=== PATIENT | female | born 1970 ===

== ENCOUNTER 2020-09-12 06:40 | Day surgery (SDC) | payer MEDICAID, SELFPAY ==
[2020-09-08 15:29] VITALS: BMI 36.8
--- NOTE | 2020-09-11 12:04 | P.CONAN_ITS ---
Documented by User: Lila Roa 09/11/20 12:05 HPI - Anesthesia Eval Consult details Narrative: 50yo F for Colonoscopy PMFSH Past Medical History Medical History Asthma History of renal stone Iron deficiency anemia Left shoulder pain Thyroid cancer Surgical History Surgical History History of lithotripsy Hx of thyroidectomy Social History Social History Advance Directives: No Advance Directives Information Provided: No Advance Directives on File: No Meds Allergies Allergy/AdvReac Type Severity Reaction Status Date / Time No Known Allergies Allergy Verified 09/12/20 07:06 [No Known Allergies*] Home Medications Medication Instructions Recorded Confirmed Type albuterol sulfate [ProAir HFA] 2 puff INHALATION Q4-6H PRN 09/08/20 09/08/20 History budesonide [Pulmicort Flexhaler] 1 inh INHALATION BID 09/08/20 09/08/20 History cholecalciferol (vitamin D3) 25 mcg PO DAILY 09/08/20 09/08/20 History [Vitamin D3] ibuprofen 09/08/20 History levothyroxine 09/08/20 09/08/20 History multivitamin 1 cap PO DAILY 09/08/20 09/08/20 History sennosides-docusate sodium [Senna 1 tab-cap PO BEDTIME 09/08/20 09/08/20 History Plus] Exam Exam Date and Time: September 11, 2020 1204 Height,Weight and Vital Signs: Height 5 ft 6 in Weight 103.419 kg Pertinent Lab Results Pertinent Lab Results: Laboratory Tests 06/02/20 06/02/20 07:05 07:05 WBC 7.2 Hgb 11.7 L Hct 36.6 L Plt Count 359 Sodium 139 Potassium 4.4 Chloride 106 BUN 13 Creatinine 0.75 Assessment and Plan Assessment Anesthesia Assessment: Chart Reviewed Documented by User: Erica Walsh 09/12/20 07:45 [facility] Past Medical History Medical History Asthma History of renal stone Iron deficiency anemia Left shoulder pain Thyroid cancer Surgical History Surgical History History of lithotripsy Hx of thyroidectomy Social History Social History Advance Directives: No Advance Directives Information Provided: No Advance Directives on File: No Meds Allergies Allergy/AdvReac Type Severity Reaction Status Date / Time No Known Allergies Allergy Verified 09/12/20 07:06 [No Known Allergies*] Home Medications Medication Instructions Recorded Confirmed Type albuterol sulfate [ProAir HFA] 2 puff INHALATION Q4-6H PRN 09/08/20 09/08/20 History budesonide [Pulmicort Flexhaler] 1 inh INHALATION BID 09/08/20 09/08/20 History cholecalciferol (vitamin D3) 25 mcg PO DAILY 09/08/20 09/08/20 History [Vitamin D3] ibuprofen 09/08/20 History levothyroxine 09/08/20 09/08/20 History multivitamin 1 cap PO DAILY 09/08/20 09/08/20 History sennosides-docusate sodium [Senna 1 tab-cap PO BEDTIME 09/08/20 09/08/20 History Plus] Exam Airway Mallampati Class: II TM Dist: >3cm Neck ROM: Full
[2020-09-12 07:13] VITALS: BP 129/72; PULSE 79; RESP 16; TEMP 36.1; O2SAT 98
[2020-09-12] MEDS: Lactated Ringers 1,000 ML 100 ML IVCONT (07:38)
--- NOTE | 2020-09-12 07:49 | MHC.SHP ---
Pre-Procedural Eval Section B Chief Complaint: Anemia Details of Present Illness: ELBERT, constipation Relevant Family History (Specify if Yes): Yes Relevant Social History: None Present Medications: see Short Stay Collaborative assessment Medical History: No relevant PMH History of Previous Operations: No relevant previous surgery Allergies: Allergies Allergy/AdvReac Type Severity Reaction Status Date / Time No Known Allergies Allergy Verified 09/12/20 07:06 [No Known Allergies*] Review of Systems Sugical H&P ROS: Negative: Constitution, Cardiovascular, Respiratory, Neurological, Psychiatric, Hem-Onc, Allergic/Immunologic, Gastrointestinal, Genitourinary, Musculoskeletal, Integumentary, Endocrine and Eyes/Ears/Nose/Throat Exam Surgical H&P Exam: Normal: HEENT, Normal: Heart, Normal: Lungs, Normal: Extremities, Normal: Abdomen, Normal: Skin and Normal: Neurological Plan Diagnosis/Plan: Unchanged Patient has been examined and remains a candidate for the planned procedure
--- NOTE | 2020-09-12 08:16 | PM.OP ---
Brief Operative Note Date of Service: 09/12/20 Pre-op diagnosis: screening Post-op diagnosis: same (colon polyp) Procedure: colonoscopy Surgeon: López Ortiz Anesthesia: MAC Estimated blood loss (mL): 0 Pathology: other (polyp 55 cm) Condition: stable Disposition: PACU
[2020-09-12 08:22] VITALS: BP 89/52; PULSE 75; RESP 14; TEMP 36.4; O2SAT 97
--- NOTE | 2020-09-12 08:35 | OP_ITS ---
SURGEON: López Ortiz MD PREOPERATIVE DIAGNOSIS: POSTOPERATIVE DIAGNOSIS: PROCEDURE PERFORMED: ESTIMATED BLOOD LOSS: COMPLICATIONS: ANESTHESIA: ASSISTANTS: SPECIMENS: PROCEDURE: Colonoscopy of the terminal ileum with snare polypectomy. INDICATION: Iron deficiency anemia and constipation. MEDICATIONS: Monitored anesthesia care. DESCRIPTION OF PROCEDURE: History and physical performed. The risks and benefits of the procedure were explained to the patient. Informed consent was obtained. The patient was placed in the left lateral decubitus position. A digital rectal exam was performed and was found to be normal. The Olympus pediatric video colonoscope was introduced into the rectum and advanced to the cecum without difficulty. The cecum was identified by transillumination, palpation, and identification of ileocecal valve. Examination was performed. The scope was removed. She tolerated the procedure well and was taken to recovery area in stable condition. FINDINGS: The terminal ileum was normal. The visualized colonic mucosa was normal. At 55 cm from the anal verge was a 7 mm polyp which was removed with a snare and recovered via suction. No other polyps were identified. Retroflexed examination showed small internal hemorrhoids. The quality of prep was good. IMPRESSION: Colon polyp. RECOMMENDATION: Follow up the biopsy results. MD ASHLEY Lozano/COLIN / [id number]
[2020-09-12 08:37] VITALS: BP 110/60; PULSE 61; RESP 16; TEMP 36.4; O2SAT 98
--- NOTE | 2020-09-12 09:18 | HO.POSTANES ---
Post Anesthesia Evaluation Post Anesthesia Evaluation Vital Signs: Vital Signs Temp Pulse Resp BP Pulse Ox 09/12/20 08:37 97.6 F 61 16 110/60 98 09/12/20 08:22 97.6 F 75 14 89/52 L 97 09/12/20 07:13 97.0 F 79 16 129/72 98 Anesthesia: Monitored Mental Status: Awake Pain Control: Satisfactory Nausea/Vomiting: None Hydration: Adequate Anesthesia-Related Issues: No Anes. Related Issues
== END 2020-09-12 09:10 | disposition home or self-care (01) ==
PROVIDERS: PCP Internal Medicine; Visit Provider Internal Medicine Gastroenterology
PROC: 0DJD8ZZ Inspection of Lower Intestinal Tract, Via Natural or Artificial Opening Endoscopic (ICD-10-PCS; CPT 45378; principal; 2020-09-12 08:00)
DX: D50.9 Iron deficiency anemia, unspecified (principal); K59.09 Other constipation; D12.6 Benign neoplasm of colon, unspecified; K64.8 Other hemorrhoids
CPT/HCPCS: 45385; 88305

== ENCOUNTER 2020-12-16 07:34 | Outpatient (REF) | payer MEDICAID, SELFPAY ==
[2020-12-16 08:23] LABS: MANUAL DIFF FLAG NO
[2020-12-16 08:30] LABS: Basophils Absolute Auto 0.1 X10*3/uL (0.0-0.2); Basophils Percent Auto 0.7 % (0-2); Eosinophils Absolute Auto 0.2 X10*3/uL (0.0-0.4); Eosinophils Percent Auto 2.7 % (0-4); Hematocrit 37.6 % (37-47); Hemoglobin 11.8 g/dl (12.0-16.0); Imm Gran Abs Auto 0.02 X10*3/uL (0.00-0.03); Imm Gran Pct Auto 0.2 % (0.0-0.4); Lymphocytes Absolute Auto 2.6 X10*3/uL (1.2-4.9); Lymphocytes Percent Auto 30.6 % (20-40); Mean Corpuscular HGB Conc 31.4 g/dl (31.0-35.0); Mean Corpuscular Hemoglobin 27.3 pg (27.0-33.0); Mean Platelet Volume 10.3 fL (9.4-12.3); Monocytes Absolute Auto 0.7 X10*3/uL (0.1-1.2); Monocytes Percent Auto 7.8 % (2-11); Platelet Count 369 X10*3/uL (160-400); Red Blood Count 4.32 X10*6/uL (4.20-5.50); Red Cell Distribution Width 14.6 % (11.0-16.0); White Blood Count 8.5 X10*3/uL (4.8-10.8)
[2020-12-16 08:53] LABS: Alanine Aminotransferase 28 U/L (0-31); Albumin Level 4.3 g/dL (3.5-5.0); Alkaline Phosphatase 111 U/L (39-117); Anion Gap 11 (12-20); Aspartate Amino Transferase 23 U/L (5-31); Bilirubin Total 0.3 mg/dL (0.0-1.0); Blood Urea Nitrogen 12 mg/dL (9-16); Calcium 8.7 mg/dL (8.4-10.2); Carbon Dioxide 29 mmol/L (22-29); Chloride 104 mmol/L (96-108); Estimated Glomerular Filt Rate > 60; Glucose Fasting 93 mg/dL (60-99); Potassium 3.9 mmol/L (3.3-5.1); Sodium 140 mmol/L (135-145); Total Protein 7.3 g/dL (6.5-8.0)
[2020-12-16 09:18] LABS: Thyroid Stimulating Hormone 0.39 uIU/mL (0.32-4.0)
== END 2020-12-16 07:35 | disposition home or self-care (01) ==
LOC: HO.LAB 07:34
PROVIDERS: PCP Internal Medicine; Visit Provider Internal Medicine
DX: D50.8 Other iron deficiency anemias (principal); E89.0 Postprocedural hypothyroidism; Z85.850 Personal history of malignant neoplasm of thyroid; Z86.010 Personal history of colon polyps
CPT/HCPCS: 36415; 80053; 84443; 85025

== ENCOUNTER 2021-01-03 09:13 | Outpatient (REF) | payer MEDICAID, SELFPAY ==
--- NOTE | ~2021-01-03 | MM_ITS ---
EXAMINATION: MM SCREENING DIGITAL BREAST TOMOSYNTHESIS, BILATERAL CLINICAL INFORMATION: Screening. Asymptomatic. The lifetime risk of breast cancer based on the Tyrer-Cuzick Model is 9.0%. COMPARISON: Mammography: September 27, 2019 and studies dating back to April 30, 2013 TECHNIQUE: Digital breast tomosynthesis is performed in both the craniocaudal and mediolateral oblique views along with computer-aided detection (CAD). Synthesized 2D images are generated from the tomosynthesis. FINDINGS: There are scattered areas of fibroglandular density (ACR BI-RADS breast composition Category b). There are no significant masses, abnormal calcifications, or other abnormalities. MM/MM tomosynthesis screening BI IMPRESSION: There are no significant changes from prior study. ASSESSMENT: BI-RADS 1: Negative RECOMMENDATION: Routine annual mammography screening. This patient's information was entered into a reminder system with a target due date for their next mammogram.
== END 2021-01-03 09:14 | disposition home or self-care (01) ==
LOC: HO.MAMMO 09:13
PROVIDERS: PCP Internal Medicine; Visit Provider Internal Medicine
DX: Z12.31 Encounter for screening mammogram for malignant neoplasm of breast (principal)
CPT/HCPCS: 77063; 77067

== ENCOUNTER → 2021-06-25 08:35 | Outpatient (BNVA) | payer MEDICAID, SELFPAY | PROVIDERS: PCP Internal Medicine; Visit Provider Surgery Vascular Surgery | DX: I83.11 Varicose veins of right lower extremity with inflammation (principal) | CPT/HCPCS: 99202 ==

== ENCOUNTER 2021-07-06 07:41 | Outpatient (REF) | payer MEDICAID, SELFPAY ==
--- NOTE | ~2021-07-06 | US_ITS ---
EXAMINATION: BILATERAL LOWER EXTREMITY VENOUS ULTRASOUND (Reflux Exam) CLINICAL INDICATION: Lower extremity varicose veins with insufficiency. COMPARISON: None. TECHNIQUE: Color flow triplex imaging and compression Doppler was performed to evaluate both the deep and the superficial systems bilaterally. To evaluate the superficial system, the examination was performed in the upright position. Color-flow Doppler ultrasound and compression ultrasound were utilized. In addition, maneuvers were utilized to demonstrate reflux. FINDINGS: 1. DEEP VENOUS ULTRASOUND OF THE RIGHT LOWER EXTREMITY: Common Femoral Vein: Compressible, normal respiratory variation and augmented flow. Femoral vein: Compressible, normal color flow and augmentation. Popliteal Vein: Compressible, normal augmentation. Deep Reflux: There is no evidence of reflux in the deep system in either the common femoral vein or the popliteal vein. There is no evidence of a Fay's cyst. 2. SUPERFICIAL ULTRASOUND WITH DOPPLER OF RIGHT LOWER EXTREMITY GREAT SAPHENOUS VEIN: The right great saphenous vein ranges in size from 0.2 cm at the ankle to 0.5 cm at the junction. There is no evidence of reflux. DUPLICATED GREAT SAPHENOUS VEIN: Lateral, 0.3 cm at the junction, no reflux. SMALL SAPHENOUS VEIN: Saphenopopliteal junction: 0.5 cm; No evidence of reflux. Mid calf: 0.2 cm; No evidence of reflux. Distal calf: 0.1 cm; No evidence of reflux. VEIN OF GIACOMINI: None Imaged. PERFORATORS: None Imaged. VARICOSITIES: Distal thigh, 0.3 cm, no reflux. At knee, 0.3 cm, no reflux. Proximal vega, 0.2 cm, 2.8 seconds of reflux. 3. DEEP VENOUS ULTRASOUND OF THE LEFT LOWER EXTREMITY: Common Femoral Vein: Compressible, normal respiratory variation and augmented flow. Femoral vein: Compressible, normal color flow and augmentation. Popliteal Vein: Compressible, normal augmentation. Deep Reflux: There is no evidence of reflux in the deep system in either the common femoral vein or the popliteal vein. There is no evidence of a Fay's cyst. 4. SUPERFICIAL ULTRASOUND WITH DOPPLER OF LEFT LOWER EXTREMITY GREAT SAPHENOUS VEIN: The left great saphenous vein ranges in size from 0.2 cm at the ankle to 0.4 cm at the saphenofemoral junction. There is segmental reflux at the knee measuring 3.4 seconds. DUPLICATED GREAT SAPHENOUS VEIN: Lateral, 0.2 cm, no reflux. SMALL SAPHENOUS VEIN: Saphenopopliteal junction: 0.2 cm; No evidence of reflux. Mid calf: 0.2 cm; No evidence of reflux. Distal calf: 0.2 cm; No evidence of reflux. VEIN OF GIACOMINI: None Imaged. PERFORATORS: Midcalf, 0.2 cm, no reflux. VARICOSITIES: Midcalf arising from the small saphenous vein, 0.2 cm, greater than 0.7 seconds of reflux. Mid thigh, 0.1 cm, greater than 0.9 seconds of reflux. US/US venous duplex LE BI IMPRESSION: 1. Segmental reflux within the left great saphenous vein at the knee. 2. No evidence of right great saphenous venous insufficiency. 3. No evidence of small saphenous venous insufficiency. 4. Bilateral refluxing varicosities. 5. No evidence of DVT or deep venous insufficiency.
== END 2021-07-06 07:42 | disposition home or self-care (01) ==
LOC: HO.US 07:41
PROVIDERS: PCP Internal Medicine; Visit Provider Surgery Vascular Surgery
DX: I83.893 Varicose veins of bilateral lower extremities with other complications (principal); I83.11 Varicose veins of right lower extremity with inflammation
CPT/HCPCS: 93970

== ENCOUNTER → 2021-08-13 08:55 | Outpatient (BNVA) | payer MEDICAID, SELFPAY | PROVIDERS: PCP Internal Medicine; Visit Provider Surgery Vascular Surgery | DX: I83.11 Varicose veins of right lower extremity with inflammation (principal) | CPT/HCPCS: 99212 ==

== ENCOUNTER → 2021-10-23 07:26 | Outpatient (BNVA) | payer MEDICAID, SELFPAY | PROVIDERS: PCP Internal Medicine; Visit Provider Surgery Vascular Surgery | DX: I83.11 Varicose veins of right lower extremity with inflammation (principal) | CPT/HCPCS: 37765 ==

== ENCOUNTER → 2021-11-05 08:48 | Outpatient (BNVA) | payer MEDICAID, SELFPAY | PROVIDERS: PCP Internal Medicine; Visit Provider Surgery Vascular Surgery | DX: I83.11 Varicose veins of right lower extremity with inflammation (principal); Z98.890 Other specified postprocedural states | CPT/HCPCS: 99212 ==

== ENCOUNTER 2021-11-17 07:33 | Outpatient (REF) | payer MEDICAID, SELFPAY ==
[2021-11-17 07:53] LABS: MANUAL DIFF FLAG NO
[2021-11-17 08:09] LABS: Basophils Percent Auto 0.4 % (0-2); Eosinophils Absolute Auto 0.2 X10*3/uL (0.0-0.4); Eosinophils Percent Auto 2.3 % (0-4); Hemoglobin 11.4 g/dl (12.0-16.0); Imm Gran Abs Auto 0.02 X10*3/uL (0.00-0.03); Imm Gran Pct Auto 0.2 % (0.0-0.4); Lymphocytes Absolute Auto 2.6 X10*3/uL (1.2-4.9); Lymphocytes Percent Auto 27.8 % (20-40); Mean Corpuscular HGB Conc 31.7 g/dl (31.0-35.0); Mean Corpuscular Hemoglobin 26.9 pg (27.0-33.0); Mean Corpuscular Volume 84.9 fL (80.0-98.0); Mean Platelet Volume 10.4 fL (9.4-12.3); Monocytes Absolute Auto 0.6 X10*3/uL (0.1-1.2); Monocytes Percent Auto 6.1 % (2-11); Neutrophils Percent Auto 63.2 % (45-73); Platelet Count 350 X10*3/uL (160-400); Red Blood Count 4.24 X10*6/uL (4.20-5.50); Red Cell Distribution Width 15.5 % (11.0-16.0); White Blood Count 9.5 X10*3/uL (4.8-10.8)
[2021-11-17 08:43] LABS: Alanine Aminotransferase 18 U/L (0-31); Albumin Level 4.2 g/dL (3.5-5.0); Alkaline Phosphatase 86 U/L (39-117); Anion Gap 13 (12-20); Aspartate Amino Transferase 18 U/L (5-31); Bilirubin Total 0.5 mg/dL (0.0-1.0); Blood Urea Nitrogen 9 mg/dL (9-16); Calcium 9.1 mg/dL (8.4-10.2); Carbon Dioxide 25 mmol/L (22-29); Chloride 105 mmol/L (96-108); Cholesterol 189 mg/dL; Estimated Glomerular Filt Rate > 60; Glucose Random 108 mg/dL (60-115); HDL Cholesterol 53 mg/dL; LDL Cholesterol Calculated 119 mg/dl; Potassium 3.9 mmol/L (3.3-5.1); Sodium 139 mmol/L (135-145); Total Protein 7.2 g/dL (6.5-8.0); Triglycerides 86 mg/dL
== END 2021-11-17 07:34 | disposition home or self-care (01) ==
LOC: HO.LAB 07:33
PROVIDERS: PCP Internal Medicine; Visit Provider Internal Medicine
DX: Z00.00 Encounter for general adult medical examination without abnormal findings (principal); E89.0 Postprocedural hypothyroidism; I83.90 Asymptomatic varicose veins of unspecified lower extremity; J45.902 Unspecified asthma with status asthmaticus; K59.09 Other constipation; Z85.850 Personal history of malignant neoplasm of thyroid; Z86.010 Personal history of colon polyps
CPT/HCPCS: 36415; 80053; 80061; 84443; 85025

== ENCOUNTER 2022-01-01 07:48 | Outpatient (REF) | payer MEDICAID, SELFPAY ==
--- NOTE | ~2022-01-01 | XR_ITS ---
EXAMINATION: XR SHOULDER, LEFT CLINICAL INFORMATION: Pain left shoulder COMPARISON: None TECHNIQUE: Three views of the left shoulder. FINDINGS: The bones and soft tissues are normal. No fracture. Glenohumeral and acromioclavicular alignment is anatomic with normal joint space. No abnormal soft tissue calcifications. XR/XR shoulder LT min 2V IMPRESSION: Unremarkable left shoulder.
== END 2022-01-01 07:49 | disposition home or self-care (01) ==
LOC: HO.HOSX 07:48
PROVIDERS: Visit Provider Physician Assistant
DX: M75.42 Impingement syndrome of left shoulder (principal); G56.02 Carpal tunnel syndrome, left upper limb
CPT/HCPCS: 73030; 99202

== ENCOUNTER 2022-01-11 07:21 | Outpatient (REF) | payer MEDICAID, SELFPAY ==
--- NOTE | ~2022-01-11 | MM_ITS ---
EXAMINATION: MM SCREENING DIGITAL BREAST TOMOSYNTHESIS, BILATERAL CLINICAL INFORMATION: Screening. Asymptomatic. The lifetime risk of breast cancer based on the Tyrer-Cuzick Model is 7%. COMPARISON: Mammography: 01/03/2021, 11/28/2018, 08/19/2018 TECHNIQUE: Digital breast tomosynthesis is performed in both the craniocaudal and mediolateral oblique views along with computer-aided detection (CAD). Synthesized 2D images are generated from the tomosynthesis. Additional right CC view is provided. FINDINGS: There are scattered areas of fibroglandular density (ACR BI-RADS breast composition Category b). There are no significant masses, abnormal calcifications, or other abnormalities. Parenchymal pattern is similar to prior studies. There is no developing density or architectural abnormality. The axilla and skin contours are unremarkable. No significant changes. MM/MM tomosynthesis screening BI IMPRESSION: No mammographic evidence of malignancy. ASSESSMENT: BI-RADS 1: Negative RECOMMENDATION: Routine annual mammography screening. This patient's information was entered into a reminder system with a target due date for their next mammogram.
== END 2022-01-11 07:22 | disposition home or self-care (01) ==
LOC: HO.MAMMO 07:21
PROVIDERS: PCP Internal Medicine; Visit Provider Internal Medicine
DX: Z12.31 Encounter for screening mammogram for malignant neoplasm of breast (principal)
CPT/HCPCS: 77063; 77067

== ENCOUNTER 2022-01-26 07:31 | Outpatient (REF) | payer MEDICAID, SELFPAY ==
--- NOTE | ~2022-01-26 | MR_ITS ---
EXAMINATION: MRI LEFT SHOULDER WITHOUT CONTRAST CLINICAL INFORMATION: Left shoulder pain COMPARISON: Radiographs 01/01/2022 TECHNIQUE: MRI of the shoulder without contrast is performed on a 1.5 Niki high-field scanner. FINDINGS: ROTATOR CUFF: Intact. Mild supraspinatus tendinosis. No muscle atrophy or fatty infiltration. BICEPS: Normal. CORACOACROMIAL ARCH: The undersurface of the acromion is curved with no subacromial spur. Mild acromioclavicular osteoarthritis. LABRUM/CAPSULE: Normal. GLENOHUMERAL JOINT/MARROW: No significant joint effusion or focal articular cartilage defect. ADDITIONAL FINDINGS: None. MR/MR shoulder LT wo con IMPRESSION: No rotator cuff tear. Mild supraspinatus tendinosis. Mild acromioclavicular osteoarthritis.
== END 2022-01-26 07:32 | disposition home or self-care (01) ==
LOC: HO.MRI 07:31
PROVIDERS: Visit Provider Physician Assistant
DX: S46.002A Unspecified injury of muscle(s) and tendon(s) of the rotator cuff of left shoulder, initial encounter (principal)
CPT/HCPCS: 73221

== ENCOUNTER → 2022-02-15 09:16 | Outpatient (BNVA) | payer MEDICAID, SELFPAY | PROVIDERS: PCP Internal Medicine; Visit Provider Physician Assistant | DX: M75.42 Impingement syndrome of left shoulder (principal); M19.012 Primary osteoarthritis, left shoulder | CPT/HCPCS: 99212 ==

== ENCOUNTER → 2022-02-25 08:05 | Outpatient (BNVA) | payer MEDICAID, SELFPAY | PROVIDERS: PCP Internal Medicine; Visit Provider Orthopaedic Surgery | DX: M75.42 Impingement syndrome of left shoulder (principal); M19.012 Primary osteoarthritis, left shoulder | CPT/HCPCS: 99212 ==

== ENCOUNTER 2022-03-10 10:01 | Outpatient (REF) | payer MEDICAID, SELFPAY ==
[2022-03-10 11:58] LABS: Alanine Aminotransferase 19 U/L (0-31); Albumin Level 4.2 g/dL (3.5-5.0); Alkaline Phosphatase 90 U/L (39-117); Anion Gap 11 (12-20); Aspartate Amino Transferase 19 U/L (5-31); Bilirubin Total 0.6 mg/dL (0.0-1.0); Blood Urea Nitrogen 11 mg/dL (9-16); Calcium 9.2 mg/dL (8.4-10.2); Carbon Dioxide 25 mmol/L (22-29); Chloride 105 mmol/L (96-108); Estimated Glomerular Filt Rate > 60; Glucose Random 86 mg/dL (60-115); Potassium 4.4 mmol/L (3.3-5.1); Sodium 137 mmol/L (135-145); Total Protein 7.2 g/dL (6.5-8.0)
[2022-03-10 12:22] LABS: Thyroid Stimulating Hormone 0.41 uIU/mL (0.32-4.0)
== END 2022-03-10 10:02 | disposition home or self-care (01) ==
LOC: HO.LAB 10:01
PROVIDERS: PCP Internal Medicine; Visit Provider Internal Medicine
DX: E89.0 Postprocedural hypothyroidism (principal); J45.909 Unspecified asthma, uncomplicated; M67.814 Other specified disorders of tendon, left shoulder; N95.1 Menopausal and female climacteric states; R10.13 Epigastric pain; Z85.850 Personal history of malignant neoplasm of thyroid
CPT/HCPCS: 36415; 80053; 84443

== ENCOUNTER 2022-04-07 09:47 | Outpatient (REF) | payer MEDICAID, SELFPAY ==
--- NOTE | 2022-04-07 09:49 | EMG_ITS ---
HISTORY OF PRESENT ILLNESS: This is a 51-year-old woman with a history of left hand pain and numbness. PHYSICAL EXAMINATION: On examination, she is alert and oriented with normal intellectual functions. Cranial nerves II through XII are normal. Muscle tone and strength are normal in all 4 extremities. No Tinel or Phalen sign. IMPRESSION: Carpal tunnel syndrome. Nerve conduction EMG study: Mild to moderate carpal tunnel syndrome on the left. Normal EMG of the left C5-T1 innervated muscles. MD DANI Limon/COLIN / [id number]
== END 2022-04-07 09:48 | disposition home or self-care (01) ==
LOC: HO.NEURO 09:47
PROVIDERS: Visit Provider Physician Assistant
DX: R20.0 Anesthesia of skin (principal); R20.2 Paresthesia of skin
CPT/HCPCS: 95885; 95910

== ENCOUNTER → 2022-04-15 09:30 | Outpatient (BNVA) | payer MEDICAID, SELFPAY | PROVIDERS: PCP Internal Medicine; Visit Provider Surgery Vascular Surgery | DX: I83.12 Varicose veins of left lower extremity with inflammation (principal) | CPT/HCPCS: 99212 ==

== ENCOUNTER → 2022-05-07 10:38 | Outpatient (BNVA) | payer MEDICAID, SELFPAY | PROVIDERS: PCP Internal Medicine; Visit Provider Physician Assistant | DX: M75.42 Impingement syndrome of left shoulder (principal); M19.012 Primary osteoarthritis, left shoulder | CPT/HCPCS: 99212 ==

== ENCOUNTER 2022-05-12 08:19 | Day surgery (SDC) | payer MEDICAID, SELFPAY ==
[2022-05-06 13:50] VITALS: BMI 36.9
--- NOTE | 2022-05-11 09:53 | HO.ANESPROP2 ---
Documented by User: Lila Roa NP 05/11/22 09:55 HPI - Anesthesia Eval Consult details Narrative: 51yo F for Left Shoulder Arthroscopy PMFSH Active Problems Active Problems: All Active Problems (Updated 05/06/22 @ 13:49 by Maliha Bray RN) Varicose veins of right lower extremity with inflammation (Acute) Impingement syndrome, shoulder, left (Acute) Mild carpal tunnel syndrome of left wrist (Acute) Osteoarthritis of left acromioclavicular joint (Acute) Varicose veins of left lower extremity with inflammation (Acute) Past Medical History Medical History Asthma History of renal stone Hypothyroid Iron deficiency anemia Left shoulder pain Thyroid cancer Varicose vein of leg Surgical History Surgical History H/O colonoscopy History of lithotripsy Hx of thyroidectomy Status post phlebectomy Social History Social History Patient Tobacco Use Status: Never used Tobacco Current occupational status: employed 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 Allergies Allergy/AdvReac Type Severity Reaction Status Date / Time No Known Allergies Allergy Verified 04/15/22 09:55 [No Known Allergies*] Home Medications Medication Instructions Recorded Confirmed Last Taken Type albuterol sulfate 90 mcg/actuation 2 puff inhalation Q4-6H PRN 09/08/20 05/12/22 Unknown History aerosol inhaler (ProAir HFA) Wheezing budesonide 90 mcg/actuation breath 1 inh inhalation BID 09/08/20 05/12/22 Unknown History activated powder inhaler (Pulmicort Flexhaler) multivitamin 1 cap PO DAILY 09/08/20 05/12/22 Unknown History budesonide-formoterol HFA 160 1 inh inhalation BID 11/05/21 05/12/22 Unknown History mcg-4.5 mcg/actuation aerosol inhaler (Symbicort) cholecalciferol (vitamin D3) 50 50 mcg PO DAILY 11/05/21 05/12/22 Unknown History mcg (2,000 unit) capsule ibuprofen 600 mg tablet 600 mg PO TID 11/05/21 05/12/22 Unknown History levothyroxine 100 mcg tablet 100 mcg PO DAILY 11/05/21 05/12/22 05/12/22 05:00 History Exam Exam Date and Time: May 11, 2022 0953 Height,Weight and Vital Signs: Height 5 ft 6 in Weight 103.873 kg Pertinent Lab Results Pertinent Lab Results: Laboratory Tests 11/17/21 03/10/22 07:52 10:25 WBC 9.5 Hgb 11.4 L Hct 36.0 L Plt Count 350 Sodium 137 Potassium 4.4 Chloride 105 Carbon Dioxide 25 BUN 11 Creatinine 0.81 Assessment and Plan Assessment Anesthesia Assessment: Chart Reviewed Documented by User: Remy Elizabeth MD 05/12/22 15:43 PMFSH Past Medical History Medical History Asthma History of renal stone Hypothyroid Iron deficiency anemia Left shoulder pain Thyroid cancer Varicose vein of leg Family History Family history of problems with anesthesia: No Surgical History Surgical History H/O colonoscopy History of lithotripsy Hx of thyroidectomy Status post phlebectomy History of Problems with Anesthesia: No Social History Social History Patient Tobacco Use Status: Never used Tobacco Current occupational status: employed 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 Allergies Allergy/AdvReac Type Severity Reaction Status Date / Time No Known Allergies Allergy Verified 04/15/22 09:55 [No Known Allergies*] Home Medications Medication Instructions Recorded Confirmed Last Taken Type albuterol sulfate 90 mcg/actuation 2 puff inhalation Q4-6H PRN 09/08/20 05/12/22 Unknown History aerosol inhaler (ProAir HFA) Wheezing budesonide 90 mcg/actuation breath 1 inh inhalation BID 09/08/20 05/12/22 Unknown History activated powder inhaler (Pulmicort Flexhaler) multivitamin 1 cap PO DAILY 09/08/20 05/12/22 Unknown History budesonide-formoterol HFA 160 1 inh inhalation BID 11/05/21 05/12/22 Unknown History mcg-4.5 mcg/actuation aerosol inhaler (Symbicort) cholecalciferol (vitamin D3) 50 50 mcg PO DAILY 11/05/21 05/12/22 Unknown History mcg (2,000 unit) capsule ibuprofen 600 mg tablet 600 mg PO TID 11/05/21 05/12/22 Unknown History levothyroxine 100 mcg tablet 100 mcg PO DAILY 11/05/21 05/12/22 05/12/22 05:00 History Exam Airway Mallampati Class: III TM Dist: >3cm Neck ROM: Full Loose/Missing/Broken Teeth: Yes Heart: S1,S2 Lungs: b/l breath sounds Assessment and Plan Assessment Anesthesia Assessment: Anesthesia Plan Discussed Final Anesthetic Review Family History of Problems with Anesthesia: No History of Problems with Anesthesia: No NPO: Yes ASA Class: II Final Preanesthetic Review: Meds/Allgs Chart Reviewed, Consent Obtained/Reviewed and Anes Risks/Benef Reviewed Patient Risk: Intermediate Procedure Risk: Intermediate Anesthetic Plan Anesthetic Plan: GA and Regional Block Disposition: Standard PACU
[2022-05-12] VITALS (13 sets, daily range): BP systolic 98–133; BP diastolic 46–74; PULSE 62–79; RESP 12–18; TEMP 36.1–36.5; O2SAT 91–98
[2022-05-12] MEDS: Lactated Ringers 1,000 ML 100 ML IVCONT (08:48)
--- NOTE | 2022-05-12 11:03 | MHC.SHP ---
Pre-Procedural Eval Section A Date of Service: 05/12/22 The patient is an INPATIENT: No Changes since office visit: Yes Changes in Medication; No Cold of Flu in the past 2 weeks, No New Medical Problems and No Patient answered all questions The History & Physical has been completed within 30 days and I have reviewed it.: No Section B Chief Complaint: Primary osteoarthritis, left shoulder,impingement Allergies: Allergies Allergy/AdvReac Type Severity Reaction Status Date / Time No Known Allergies Allergy Verified 04/15/22 09:55 [No Known Allergies*] Plan I have reviewed the history and physical and performed a pertinent physical examination on my patient. No changes have occurred unless specified.
--- NOTE | 2022-05-12 12:06 | PM.OP ---
Brief Operative Note Date of Service: 05/12/22 Pre-op diagnosis: left shoulder ACJ OA and SUB acromial impingement Post-op diagnosis: same Procedure: Left shoulder subacromial decompression and distal clavicle excision Surgeon: Lefty Toure MD Anesthesia: GETA and regional Was an Hand Umbrella Tipper used for this Procedure?: No Estimated blood loss (mL): 20 IV fluids (mL): 500 Pathology: none sent Condition: stable Disposition: PACU
--- NOTE | 2022-05-12 12:12 | P.OP_ITS ---
Operative Note Operative Note Date of Service: 05/12/22 Narrative: Date of Service: 05/12/22 Pre-op diagnosis: left shoulder ACJ OA and SUB acromial impingement Post-op diagnosis: same Procedure: Left shoulder subacromial decompression and distal clavicle excision Surgeon: Lefty Toure MD Anesthesia: GETA and regional Was an Urban Redevelopment Specialist used for this Procedure?: No Estimated blood loss (mL): 20 IV fluids (mL): 500 Pathology: none sent Condition: stable Disposition: PACU Procedure in detail: Patient was brought to the operating room and placed the the beach chair position. All bony prominences were well padded and the limb was prepped and draped in standard sterile fashion. A time out was called to identify proper site, proper procedure and proper surgeon. IV antibiotics per weight were administered.I began by making a posterolateral stab incision with a 15 blade. A blunt trochar was placed into the glenohumeral joint and I insufflated the joint with saline and a 30 degree arthroscope was placed. I established an outside- in anterior portal just distal to the biceps tendon. I then began my inspection of the glenohumeral joint.The cartilage surfaces were intact with minimal G1 changes of the glenoid. Biceps, labrum and subacapuris were intact. There was no undersurface RTC tear. I then removed the trochar and entered the subacromial space. A direct lateral portal was then established and I performed a bursectomy. There was florrid bursitis and no rotator cuff tear. The AC joint was ten inspected. The distal clavicle cartilage was eroded and the joint was arthritis. Via wityh anterior portal I perfromed a 5 mm DCE. Onec I was satisfied with this I performed a 5mm subacromial codeompression. Once I was satisfied with the extent of decomrpession the final images were captured and I removed all instrumentation. Portals were closed with nylon. Patient was placed in an abduction sling, extubated and brought to the recovery room in stable condition. There were no known complications.
[2022-05-12] MEDS: Acetaminophen 325 MG TABLET 650 MG PO (12:24)
[2022-05-12] MEDS: oxyCODONE HCl Immed Release 5 MG TABLET PO (12:25)
[2022-05-12] MEDS: fentaNYL citrate/PF 100 MCG/2 ML VIAL 25 MCG IVPUSH ×2 (12:29→12:34)
[2022-05-12] MEDS: HYDROmorphone HCl 0.5 MG/0.5 ML SYRINGE 0.25 MG IVPUSH ×4 (12:45→13:24)
== END 2022-05-12 15:19 | disposition home or self-care (01) ==
PROVIDERS: PCP Internal Medicine; Visit Provider Orthopaedic Surgery
PROC: (CPT 29805; principal; 2022-05-12 10:40)
DX: M75.42 Impingement syndrome of left shoulder (principal); M19.012 Primary osteoarthritis, left shoulder; M25.512 Pain in left shoulder; J45.909 Unspecified asthma, uncomplicated; D50.9 Iron deficiency anemia, unspecified; E89.0 Postprocedural hypothyroidism; Z85.850 Personal history of malignant neoplasm of thyroid; Z79.1 Long term (current) use of non-steroidal anti-inflammatories (NSAID); Z79.51 Long term (current) use of inhaled steroids; Z79.899 Other long term (current) drug therapy
CPT/HCPCS: 29824; 29826; J0171; J0690; J1100; J1170; J2250; J2405; J2795; J3010

== ENCOUNTER 2022-07-28 08:00 | Outpatient (RCR) | payer MEDICAID, SELFPAY ==
--- NOTE | 2022-05-17 11:42 | MHC.PT.EP ---
[facility] [place] [facility] [place] [facility] [place] Office [address] Bubba Wheeler [address] [phone] F: [phone] F: [phone] F: [phone] F: [phone] Physical Therapy Plan of Care Date of Evaluation: Date of Surgery: 05/12/22 Diagnosis: Left shoulder subacromial decompression and distal clavicle excision Assessment: WILLIAM IS A PLEASANT 51 YO FEMALE WHO PRESENTS POD #5 FOR ORTHOPEDIC FOLLOW UP AND PT EVALUATION. UPON EXAM SHE DEMONSTRATES THE EXPECTED IMPAIRMENTS OF DECREASED ROM, DECREASED STRENGTH, ALTERED POSTURE AND POSITIONING, INCREASED UPPER TRAP GUARDING, AND INCREASED PAIN AND EDEMA. FUNCTIONAL LIMITATIONS INCLUDE DECREASED ABILITY TO PERFORM HOMEMAKING AND SELF-CARE TASKS, DECREASED ABILITY TO PERFORM PUSHING, PULLING, LIFTING AND REACHING. INABILITY TO DRIVE AND PERFORM WORK TASKS, DECREASED PARTICIPATION IN COMMUNITY AND RECREATIONAL ACTIVITIES AND DISRUPTED SLEEP. THE PT IS A GOOD CANDIDATE FOR SKILLED PT DUE TO AGE, POTENTIAL REMEDIATION OF IMPAIRMENTS, TYPICAL DISEASE/CONDITION PROGRESSION AND PROGNOSIS, COMORBIDITIES, AND MOTIVATION. PT WOULD BENEFIT FROM TAILORED PROGRAM OF THERAPEUTIC ACTIVITIES, FUNCTIONAL TRAINING,, POSTURAL EDUCATION, NEUROMUSCULAR RE-EDUCATION, AND MODALITIES NEEDED. Frequency and Duration: The patient will be seen 2 X WEEK FOR 4 WEEKS Short Term Goals: INITIATE HEP AND PROMOTE SELF MANAGEMENT OF SYMPTOMS Road Worker Goals: FULL, PAIN FREE ROM FULL UE STRENGTH, PAIN FREE TO PERFORM WORK TASKS WITHOUT RESTRICTION AND PAIN NO GREATER THAN 2/[address] OBJECT AT MINIMUM OF 5# INTO CABINET AT SHOULDER HEIGHT Treatment Plan: Modalities to reduce pain, spasms and effusion. Manual therapy to restore motion and function. Therapeutic exercise to improve strength and flexibility. Neuromuscular re-education for posture and balance. Therapeutic activities to return to functional activities of daily living. Electronically signed by: OMAR LEÓN PT, DPT Please sign and return to therapist. Thank you for your referral.
--- NOTE | 2022-08-19 08:36 | MHC.PT.DC ---
[facility] [place] Office [place] Office [place] Office [address] Bubba Wheeler [address] [facility] [phone] F: [phone] F: [phone] F: [phone] F: [phone] Physical Therapy Discharge Report Diagnosis: Left shoulder subacromial decompression and distal clavicle excision Date of Surgery: 05/12/22 Date of Evaluation: 05/17/22 Date of Discharge: 08/01/22 Treatments to Date: 18 Cancellations to Date: 0 No Shows to Date: 0 Discharge Status: Achieved Goals Improved Function Independent with HEP Discharge Summary: Penny has progressed well in therapy and is independent with a comprehensive home exercise program. She is anticipating returning to work. Electronically signed by: Yeny Sanchez PT, DPT Please sign and return to therapist. Thank you for your referral.
== END 2022-09-06 13:35 | disposition home or self-care (01) ==
LOC: HO.PT 08:00
PROVIDERS: PCP Internal Medicine; Visit Provider Physician Assistant
DX: M54.6 Pain in thoracic spine (principal)
CPT/HCPCS: 97110; 97112; 97140; 97161; 97530

== ENCOUNTER 2022-11-15 08:01 | Outpatient (REF) | payer MEDICAID, SELFPAY ==
[2022-11-15 08:14] LABS: MANUAL DIFF FLAG NO
[2022-11-15 08:26] LABS: Basophils Absolute Auto 0.1 X10*3/uL (0.0-0.2); Basophils Percent Auto 0.9 % (0-2); Eosinophils Absolute Auto 0.2 X10*3/uL (0.0-0.4); Eosinophils Percent Auto 2.6 % (0-4); Hematocrit 39.8 % (37.0-47.0); Hemoglobin 12.7 g/dl (12.0-16.0); Imm Gran Abs Auto 0.03 X10*3/uL (0.00-0.03); Imm Gran Pct Auto 0.4 % (0.0-0.4); Lymphocytes Absolute Auto 2.4 X10*3/uL (1.2-4.9); Lymphocytes Percent Auto 29.6 % (20-40); Mean Corpuscular HGB Conc 31.9 g/dl (31.0-35.0); Mean Corpuscular Hemoglobin 27.1 pg (27.0-33.0); Mean Corpuscular Volume 84.9 fL (80.0-98.0); Mean Platelet Volume 10.2 fL (9.4-12.3); Monocytes Absolute Auto 0.6 X10*3/uL (0.1-1.2); Monocytes Percent Auto 7.6 % (2-11); Neutrophils Absolute Auto 4.8 x10*3/uL (2.0-8.3); Neutrophils Percent Auto 58.9 % (45-73); Platelet Count 389 X10*3/uL (160-400); Red Blood Count 4.69 X10*6/uL (4.20-5.50); Red Cell Distribution Width 15.5 % (11.0-16.0); White Blood Count 8.1 X10*3/uL (4.8-10.8)
[2022-11-15 09:02] LABS: Alanine Aminotransferase 82 U/L (0-31); Albumin Level 4.3 g/dL (3.5-5.0); Alkaline Phosphatase 162 U/L (39-117); Anion Gap 13 (12-20); Aspartate Amino Transferase 42 U/L (5-31); Bilirubin Total 1.1 mg/dL (0.0-1.0); Blood Urea Nitrogen 13 mg/dL (9-16); Calcium 9.4 mg/dL (8.4-10.2); Carbon Dioxide 26 mmol/L (22-29); Chloride 104 mmol/L (96-108); Estimated Glomerular Filt Rate > 60; Glucose Random 107 mg/dL (60-115); Potassium 4.2 mmol/L (3.3-5.1); Sodium 139 mmol/L (135-145); Total Protein 7.3 g/dL (6.5-8.0)
[2022-11-15 09:08] LABS: Thyroid Stimulating Hormone 2.93 uIU/mL (0.32-4.0)
== END 2022-11-15 08:02 | disposition home or self-care (01) ==
LOC: HO.LAB 08:01
PROVIDERS: PCP Internal Medicine; Visit Provider Internal Medicine
DX: Z00.00 Encounter for general adult medical examination without abnormal findings (principal); E89.0 Postprocedural hypothyroidism; K59.00 Constipation, unspecified
CPT/HCPCS: 36415; 80053; 84443; 85025

== ENCOUNTER 2022-12-18 23:24 | Inpatient (IN) | payer MEDICAID, SELFPAY ==
--- NOTE | ~2022-12-18 | CT_ITS ---
EXAMINATION: CT ABDOMEN AND PELVIS WITH CONTRAST CLINICAL INFORMATION: Upper abdominal pain COMPARISON: None TECHNIQUE: Multidetector volumetric images were obtained from the superior aspect of the liver through the pubic symphysis following administration 85 mL of Omnipaque 350 intravenous contrast. Sagittal and coronal reformatted images were obtained on the technologist's workstation. Oral contrast: No This CT examination was performed using dose optimization techniques as appropriate, variously including the following: *Automated exposure control *Adjustment of mA and/or kV according to patient size (this includes techniques or standardized protocols for targeted exams where dose is matched to indication/reason for exam; i.e. extremities or head) *Use of iterative reconstruction technique DLP: 747 mGy-cm FINDINGS: LUNG BASES: Mild bronchial thickening and mosaic attenuation likely atelectasis and air trapping in the setting of small airways inflammation. LIVER, GALLBLADDER, AND BILIARY TREE: The liver is normal in size, shape, and attenuation. There is a 2.2 cm hypodensity in hepatic segment peripheral nodular enhancement matching that of blood pool compatible with a hemangioma. There are also a few tiny cysts. There is a 1.4 cm stone in the gallbladder neck associated with mild gallbladder distention. No pericholecystic abnormalities. Common bile duct is mildly dilated measuring up to 8 mm. PANCREAS: Unremarkable. SPLEEN: Normal size. There is a 1.9 cm hypodensity in the medial spleen. Splenic observations are almost always benign. This finding likely represents a cyst, hemangioma or lymphangioma. ADRENAL GLANDS: Unremarkable. KIDNEYS AND URETERS: The kidneys are normal in size, shape, and attenuation. No hydronephrosis, hydroureter, or calculi seen. No perinephric stranding. BLADDER: Unremarkable. GASTROINTESTINAL TRACT: The small and large bowel are unremarkable. The appendix is unremarkable. ABDOMINAL WALL: No significant hernia is appreciated. LYMPH NODES: Normal. VASCULAR: Unremarkable. PELVIC VISCERA: Leiomyomatous uterus. Suspect subserosal fibroid along the right lateral uterus versus the right ovary OSSEOUS STRUCTURES: No acute or suspicious osseous abnormalities. Scattered hemangiomas throughout the imaged spine. CT/CT abdomen pelvis w IV con IMPRESSION: * There is a 1.4 cm stone in the gallbladder neck associated with mild gallbladder distention. No pericholecystic abnormalities. Cholecystitis not excluded. Consider right upper quadrant ultrasound for further evaluation. * Mild prominence of the common bile duct measuring up to 8 mm. If there is concern for choledocholithiasis, recommend right upper quadrant ultrasound or MRCP. * Leiomyomatous uterus. Suspect subserosal fibroid along the right lateral uterus versus the right ovary. Consider nonemergent pelvic ultrasound for further evaluation. * There is a 2.2 cm hypodensity in hepatic segment peripheral nodular enhancement matching that of blood pool compatible with a hemangioma.
[2022-12-18 23:56] VITALS: BP 130/60; PULSE 70; RESP 16; TEMP 36.7; O2SAT 99; BMI 30.8
[2022-12-19] VITALS (8 sets, daily range): BP systolic 103–134; BP diastolic 49–76; PULSE 57–71; RESP 16–20; TEMP 36.1–36.7; O2SAT 94–99; BMI 30.8
--- NOTE | 2022-12-19 00:32 | ECG_ITS ---
Test Reason : chest pain Blood Pressure : / mmHG Vent. Rate : 059 BPM Atrial Rate : 059 BPM P-R Int : 114 ms QRS Dur : 108 ms QT Int : 418 ms P-R-T Axes : 054 -40 007 degrees QTc Int : 413 ms Sinus bradycardia Left axis deviation Incomplete right bundle branch block Minimal voltage criteria for LVH, may be normal variant ( [place] product ) Septal infarct , age undetermined Abnormal ECG No significant changes when compared with the previous EKG of 03 jul 2004 Referred By: Rc Orozco Electronically Signed By:LITZY AGUILERA
--- NOTE | 2022-12-19 00:36 | ED_ITS ---
HPI - General Adult General Chief complaint: Abdominal Pain <Rc Orozco - Last Filed: 12/19/22 01:46> Stated complaint: stomach pain, nausea <Rc Orozco - Last Filed: 12/19/22 01:46> Time Seen by Provider: 12/19/22 00:12 <Rc Orozco - Last Filed: 12/19/22 01:46> Source: patient and RN notes reviewed <Rc Orozco - Last Filed: 12/19/22 01:46> Mode of arrival: ambulatory <Rc Orozco - Last Filed: 12/19/22 01:46> Limitations: no limitations <Rc Orozco - Last Filed: 12/19/22 01:46> History of Present Illness HPI narrative: 52-year-old female with past medical history significant for hypothyroidism presents for evaluation of abdominal pain. Patient reports upper abdominal pain that started about 7 hours prior to my evaluation. The pain seems to be worse on the right. She denies any trigger for her pain. She was not eating or drinking anything partly of the of her pain. She denies any associated nausea, vomiting, or diarrhea. She denies any history of abdominal surgeries she will chest pain, shortness of breath, coughing. She states her pain is 10/10, stabbing. Patient denies any excessive alcohol abuse, NSAID abuse <Rc Orozco - Last Filed: 12/19/22 01:46> Related Data Home medications: Home Medications Medication Instructions Recorded Confirmed albuterol sulfate 90 mcg/actuation 2 puff inhalation Q4-6H PRN 09/08/20 05/12/22 aerosol inhaler (ProAir HFA) Wheezing budesonide 90 mcg/actuation breath 1 inh inhalation BID 09/08/20 05/12/22 activated powder inhaler (Pulmicort Flexhaler) multivitamin 1 cap PO DAILY 09/08/20 05/12/22 budesonide-formoterol HFA 160 1 inh inhalation BID 11/05/21 05/12/22 mcg-4.5 mcg/actuation aerosol inhaler (Symbicort) cholecalciferol (vitamin D3) 50 50 mcg PO DAILY 11/05/21 05/12/22 mcg (2,000 unit) capsule ibuprofen 600 mg tablet 600 mg PO TID 11/05/21 05/12/22 levothyroxine 100 mcg tablet 100 mcg PO DAILY 11/05/21 05/12/22 omeprazole 20 mg capsule,delayed 20 mg PO DAILY 07/30/22 release <Rc [place] - Last Filed: 12/19/22 01:46> Allergies/adverse reactions: Allergies Allergy/AdvReac Type Severity Reaction Status Date / Time No Known Allergies Allergy Verified 07/30/22 09:27 [No Known Allergies*] < Last Filed: 12/19/22 01:46> Review of Systems Constitutional: Constitutional: Reports as per HPI, Denies chills, Denies fatigue, Denies fever(s) and Denies headache(s) < Last Filed: 12/19/22 01:46> ENT: Denies headache(s) < Last Filed: 12/19/22 01:46> Cardiovascular: Cardiovascular: Denies chest pain and Denies dyspnea < Last Filed: 12/19/22 01:46> Respiratory: Respiratory: Denies cough and Denies dyspnea < Last Filed: 12/19/22 01:46> Gastrointestinal: Gastrointestinal: Reports abdominal pain, Denies constipation and Denies vomiting < Last Filed: 12/19/22 01:46> Genitourinary: Genitourinary: Denies dysuria < Last Filed: 12/19/22 01:46> Neurologic: Denies headache(s) and Denies focal weakness < Last Filed: 12/19/22 01:46> Endocrine: Endocrine: Denies fatigue < Last Filed: 12/19/22 01:46> PMF Past Medical History Medical History: Medical History Asthma History of renal stone Hypothyroid Iron deficiency anemia Left shoulder pain Thyroid cancer Varicose vein of leg <Rc OAmarjit - Last Filed: 12/19/22 01:46> Surgical History: Surgical History H/O colonoscopy History of lithotripsy Hx of thyroidectomy Status post phlebectomy <Rc Orozco - Last Filed: 12/19/22 01:46> Social History Social History: Social History Alcohol intake: current Alcohol intake frequency: holidays/special occasions only Alcohol type: hard liquor Patient Tobacco Use Status: Never used Tobacco Smoked in Last 30 Days: No Use of substances other than those prescribed or required for medical reasons: No Advance Directives: No Advance Directives Information Provided: Yes Patient : No Current occupational status: employed 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 <Rc Orozco - Last Filed: 12/19/22 01:46> Physical Exam ED Vital Signs: Vital Signs - 24 hr 12/18/22 23:56 12/19/22 01:05 12/19/22 01:18 Temperature 98.1 F 98.0 F Pulse Rate 70 71 Respiratory Rate 16 17 16 Blood Pressure 130/60 119/64 Pulse Oximetry 99 98 Oxygen Delivery Method Room Air Room Air BMI result Body Mass Index 30.8 <Rc Orozco - Last Filed: 12/19/22 01:46> Vital Signs - 24 hr 12/18/22 23:56 12/19/22 01:05 12/19/22 01:18 Temperature 98.1 F 98.0 F Pulse Rate 70 71 Respiratory Rate 16 17 16 Blood Pressure 130/60 119/64 Pulse Oximetry 99 98 Oxygen Delivery Method Room Air Room Air BMI result Body Mass Index 30.8 <Pascual Hou MD - Last Filed: 12/19/22 05:00> Const General: healthy appearing, comfortable, no acute distress, alert and awake <Rc Orozco - Last Filed: 12/19/22 01:46> Nutritional Appearance: well nourished <Rc Orozco - Last Filed: 12/19/22 01:46> Orientation/consciousness: patient oriented x3 <Rc Orozco - Last Filed: 12/19/22 01:46> HENMT Head: Yes normocephalic and Yes atraumatic <Rc Orozco - Last Filed: 12/19/22 01:46> Throat: Yes posterior oropharynx normal <Rc O[place] - Last Filed: 12/19/22 01:46> Eyes Eyelids: Yes eyelids normal <Rc O[place] - Last Filed: 12/19/22 01:46> Conjunctivae: conjunctivae normal < Last Filed: 12/19/22 01:46> Sclerae: sclerae normal < - Last Filed: 12/19/22 01:46> Corneas: corneas normal < - Last Filed: 12/19/22 01:46> Pupils: Equal, round and reactive pupils present <Rc OAmarjit - Last Filed: 12/19/22 01:46> EOM: EOMs intact bilaterally <Rc O Last Filed: 12/19/22 01:46> Neck Neck: Yes full ROM <Rc O Last Filed: 12/19/22 01:46> Resp Effort & Inspection: normal respiratory effort, able to speak in complete sentences, no audible wheezes and not labored <Rc O Last Filed: 12/19/22 01:46> Auscultation: clear to auscultation bilaterally <Rc O Last Filed: 12/19/22 01:46> Cardio Rate: regular rate <Rc Last Filed: 12/19/22 01:46> Rhythm: regular rhythm <Rc O - Last Filed: 12/19/22 01:46> GI Other: Abdomen is soft, nondistended <Rc OAmarjit - Last Filed: 12/19/22 01:46> Inspection: No distended <Medich[place]ical Engineering[place] - Last Filed: 12/19/22 01:46> Palpation (GI): Soft to palpation, not firm, Tenderness to palpation present (GI) in the epigastrum, in the RUQ and Dillard's sign positive; not in the LLQ, not in the RLQ and not in the LUQ, Guarding due to palpation present (GI), not rigid and no masses <Rc O[place] - Last Filed: 12/19/22 01:46> Auscultation: normoactive bowel sounds <Rc Orozco Last Filed: 12/19/22 01:46> Skin General skin exam: no rashes or lesions noted and elasticity normal <Rc Madden Last Filed: 12/19/22 01:46> Neuro General: patient oriented x3 <Rc O[place] - Last Filed: 12/19/22 01:46> Cranial nerves: Yes CN's II-XII intact bilaterally, Yes Equal, round and reactive pupils present and Yes Bilaterally intact EOM present <Rc O[place] - Last Filed: 12/19/22 01:46> Cognition (Neuro): normal cognition <Rc O[place] - Last Filed: 12/19/22 01:46> Extrem Other: Moving all extremities well without any obvious deformities <Rc [place] - Last Filed: 12/19/22 01:46> Course Reevaluation(s) Reevaluation #1: I reviewed the patient's labs, her lipase was 2022. T bili 1.4, this is likely indicative of gallstone pancreatitis. Patient had CT scan at the moment. Patient signed out to overnight shift pending CT scan and admission <Rc OAmarjit Last Filed: 12/19/22 01:46> Time: 01:46 <Rctheron Orozco Last Filed: 12/19/22 01:46> Reevaluation #2: Patient seen and re-evaluated complaining of pain right upper quadrant and epigastric area for last 2 weeks off and on got worse prior to arrival workup showed significant elevated lipase and slightly elevated LFTs CT scan showed 1.4 cm stone at gallbladder neck associated with mild CBD dilatation of [address] Healy surgeon will take the patient to surgery for possible cholecystectomy in a.m. does not want to give any antibiotics at this time <Pascual Hou MD - Last Filed: 12/19/22 05:00> Time: 02:57 <Pascual Hou MD - Last Filed: 12/19/22 05:00> Medications Administered Generic Name Dose Route Start Last Admin Trade Name Freq PRN Reason Stop Dose Admin Hydromorphone HCl 0.25 mg 12/19/22 03:56 12/19/22 04:22 Hydromorphone Hcl 0.5 Mg/0.5 Ml Syringe IVPUSH 0.25 mg Q2H PRN Administration Pain, Moderate (Pain Scale 4-6 Protocol Lactated Ringer's 1,000 mls @ 100 mls/hr 12/19/22 04:00 12/19/22 04:23 Lr IVCONT 100 mls/hr .Q10H NATHAN Administration Discontinued Medications Generic Name Dose Route Start Last Admin Trade Name Freq PRN Reason Stop Dose Admin Sodium Chloride 1,000 mls @ 999 mls/hr 12/19/22 00:45 12/19/22 04:09 Ns IV 12/19/22 01:45 Infused .Q1H1M NATHAN Infusion Iohexol 85 ml 12/19/22 01:50 12/19/22 01:51 Iohexol 350 Mg/Ml 100 Ml Infus..Btl IV 12/19/22 01:51 85 ml ONCE ONE Administration Morphine Sulfate 4 mg 12/19/22 00:32 12/19/22 01:18 Morphine Sulfate 4 Mg/Ml Cartridge IVPUSH 12/19/22 00:33 4 mg ONCE ONE Administration Protocol Ondansetron HCl 4 mg 12/19/22 00:32 12/19/22 01:18 Ondansetron Hcl 4 Mg/2 Ml Vial IVPUSH 12/19/22 00:33 4 mg ONCE ONE Administration <Rc Orozco - Last Filed: 12/19/22 01:46> Medications Administered Generic Name Dose Route Start Last Admin Trade Name Freq PRN Reason Stop Dose Admin Hydromorphone HCl 0.25 mg 12/19/22 03:56 12/19/22 04:22 Hydromorphone Hcl 0.5 Mg/0.5 Ml Syringe IVPUSH 0.25 mg Q2H PRN Administration Pain, Moderate (Pain Scale 4-6 Protocol Lactated Ringer's 1,000 mls @ 100 mls/hr 12/19/22 04:00 12/19/22 04:23 Lr IVCONT 100 mls/hr .Q10H NATHAN Administration Discontinued Medications Generic Name Dose Route Start Last Admin Trade Name Freq PRN Reason Stop Dose Admin Sodium Chloride 1,000 mls @ 999 mls/hr 12/19/22 00:45 12/19/22 04:09 Ns IV 12/19/22 01:45 Infused .Q1H1M NATHAN Infusion Iohexol 85 ml 12/19/22 01:50 12/19/22 01:51 Iohexol 350 Mg/Ml 100 Ml Infus..Btl IV 12/19/22 01:51 85 ml ONCE ONE Administration Morphine Sulfate 4 mg 12/19/22 00:32 12/19/22 01:18 Morphine Sulfate 4 Mg/Ml Cartridge IVPUSH 12/19/22 00:33 4 mg ONCE ONE Administration Protocol Ondansetron HCl 4 mg 12/19/22 00:32 12/19/22 01:18 Ondansetron Hcl 4 Mg/2 Ml Vial IVPUSH 12/19/22 00:33 4 mg ONCE ONE Administration <Pascual Hou MD - Last Filed: 12/19/22 05:00> Medical Decision Making Medical Decision Making [facility] Narrative: 52-year-old female presenting for evaluation of upper abdominal pain for last 7 hours. She reports the pain is severe. She denies associated nausea or vomiting, diarrhea. Will check basic labs. Given her significant discomfort which with morphine, Zofran and a CT scan of the pelvis to evaluate for sig nificant pathology. Differential includes GERD, gastritis, cholelithiasis, cholecystitis, pancreatitis, constipation, obstipation. patient's vital signs are within normal limits, she is afebrile. Normotensive <Rc Orozco - Last Filed: 12/19/22 01:46> Differential Diagnosis cholelithiasis Acute cholecystitis GERD Gastritis Pancreatitis constipation obstipation <Rc Orozco - Last Filed: 12/19/22 01:46> Lab Data [facility] Lab Attestation statement: I reviewed the patient's lab results. <Rc Orozco - Last Filed: 12/19/22 01:46> Result Diagrams: 12/19/22 00:52 12/19/22 00:52 <Rc Orozco - Last Filed: 12/19/22 01:46> Labs: Lab Results 12/19/22 12/19/22 12/19/22 Range/Units 00:52 00:52 00:55 WBC 11.9 H (4.8-10.8) X10*3/uL RBC 4.82 (4.20-5.50) X10*6/uL Hgb 12.8 (12.0-16.0) g/dl Hct 40.7 (37.0-47.0) % MCV 84.4 (80.0-98.0) fL MCH 26.6 L (27.0-33.0) pg MCHC 31.4 (31.0-35.0) g/dl RDW 15.0 (11.0-16.0) % Plt Count 385 (160-400) X10*3/uL MPV 10.2 (9.4-12.3) fL Immature Gran % (Auto) 0.3 (0.0-0.4) % Neut % (Auto) 79.9 H (45-73) % Lymph % (Auto) 11.7 L (20-40) % [place] % (Auto) 6.9 (2-11) % Eos % (Auto) 0.8 (0-4) % Baso % (Auto) 0.4 (0-2) % Lymph # (Auto) 1.4 (1.2-4.9) X10*3/uL [place] # (Auto) 0.8 (0.1-1.2) X10*3/uL Eos # (Auto) 0.1 (0.0-0.4) X10*3/uL Baso # (Auto) 0.1 (0.0-0.2) X10*3/uL Abs Immat Gran (auto) 0.03 (0.00-0.03) X10*3/uL Absolute Neuts (auto) 9.5 H (2.0-8.3) x10*3/uL Absolute Nucleated RBC 0.000 (0.0-0.012) X10*3/uL Nucleated RBC % (auto) 0.0 (0.0-0.2) /100WBC PT (10.0-13.1) SEC INR (0.9-1.1) APTT (26.0-36.4) SEC Sodium 138 (135-145) mmol/L Potassium 4.1 (3.3-5.1) mmol/L Chloride 107 (96-108) mmol/L Carbon Dioxide 17 L (22-29) mmol/L Anion Gap 18 (12-20) BUN 9 (9-16) mg/dL Creatinine 0.76 (0.5-1.4) mg/dL Estim Creat Clear Calc 109.5 Estimated GFR > 60 Random Glucose 96 (60-115) mg/dL Calcium 8.8 D (8.4-10.2) mg/dL Total Bilirubin 1.4 H (0.0-1.0) mg/dL AST 60 H (5-31) U/L ALT 40 H (0-31) U/L Alkaline Phosphatase 100 (39-117) U/L Total Protein 7.3 (6.5-8.0) g/dL Albumin 4.2 (3.5-5.0) g/dL Lipase 2022 H (8-78) U/L Urine Color Yellow Urine Appearance Clear Urine pH 6.0 (5.0-9.0) Ur Specific [place] 1.015 (1.005-1.025) Urine Protein Negative (Neg-Trace) mg/dL Urine Glucose (UA) Negative (Negative) mg/dL Urine Ketones Negative (Negative) mg/dL Urine Blood Small (1+) H (Negative) Urine Nitrite Negative (Negative) Ur Leukocyte Esterase Negative (Negative) Urine RBC 3-5 H (0-2) /HPF Urine WBC 0-5 (0-5) /HPF Ur Squamous Epith Cells 0-2 (0-2) /HPF Urine Bacteria None Seen (None Seen) Hyaline Casts 0-2 (0-2) /LPF Urine Test (NEGATIVE) COVID-19 (GLENDY) (Negative) COVID-19 Clin Com 12/19/22 12/19/22 12/19/22 Range/Units 00:55 03:10 03:13 WBC (4.8-10.8) X10*3/uL RBC (4.20-5.50) X10*6/uL Hgb (12.0-16.0) g/dl Hct (37.0-47.0) % MCV (80.0-98.0) fL MCH (27.0-33.0) pg MCHC (31.0-35.0) g/dl RDW (11.0-16.0) % Plt Count (160-400) X10*3/uL MPV (9.4-12.3) fL Immature Gran % (Auto) (0.0-0.4) % Neut % (Auto) (45-73) % Lymph % (Auto) (20-40) % [place] % (Auto) (2-11) % Eos % (Auto) (0-4) % Baso % (Auto) (0-2) % Lymph # (Auto) (1.2-4.9) X10*3/uL [place] # (Auto) (0.1-1.2) X10*3/uL Eos # (Auto) (0.0-0.4) X10*3/uL Baso # (Auto) (0.0-0.2) X10*3/uL Abs Immat Gran (auto) (0.00-0.03) X10*3/uL Absolute Neuts (auto) (2.0-8.3) x10*3/uL Absolute Nucleated RBC (0.0-0.012) X10*3/uL Nucleated RBC % (auto) (0.0-0.2) /100WBC PT 12.0 (10.0-13.1) SEC INR 1.0 (0.9-1.1) APTT 36.1 (26.0-36.4) SEC Sodium (135-145) mmol/L Potassium (3.3-5.1) mmol/L Chloride (96-108) mmol/L Carbon Dioxide (22-29) mmol/L Anion Gap (12-20) BUN (9-16) mg/dL Creatinine (0.5-1.4) mg/dL Estim Creat Clear Calc Estimated GFR Random Glucose (60-115) mg/dL Calcium (8.4-10.2) mg/dL Total Bilirubin (0.0-1.0) mg/dL AST (5-31) U/L ALT (0-31) U/L Alkaline Phosphatase (39-117) U/L Total Protein (6.5-8.0) g/dL Albumin (3.5-5.0) g/dL Lipase (8-78) U/L Urine Color Urine Appearance Urine pH (5.0-9.0) Ur Specific [place] (1.005-1.025) Urine Protein (Neg-Trace) mg/dL Urine Glucose (UA) (Negative) mg/dL Urine Ketones (Negative) mg/dL Urine Blood (Negative) Urine Nitrite (Negative) Ur Leukocyte Esterase (Negative) Urine RBC (0-2) /HPF Urine WBC (0-5) /HPF Ur Squamous Epith Cells (0-2) /HPF Urine Bacteria (None Seen) Hyaline Casts (0-2) /LPF Urine Test NEGATIVE (NEGATIVE) COVID-19 (GLENDY) Negative (Negative) COVID-19 Clin Com See Note <Rc Orozco - Last Filed: 12/19/22 01:46> Lab Results 12/19/22 12/19/22 12/19/22 Range/Units 00:52 00:52 00:55 WBC 11.9 H (4.8-10.8) X10*3/uL RBC 4.82 (4.20-5.50) X10*6/uL Hgb 12.8 (12.0-16.0) g/dl Hct 40.7 (37.0-47.0) % MCV 84.4 (80.0-98.0) fL MCH 26.6 L (27.0-33.0) pg MCHC 31.4 (31.0-35.0) g/dl RDW 15.0 (11.0-16.0) % Plt Count 385 (160-400) X10*3/uL MPV 10.2 (9.4-12.3) fL Immature Gran % (Auto) 0.3 (0.0-0.4) % Neut % (Auto) 79.9 H (45-73) % Lymph % (Auto) 11.7 L (20-40) % [place] % (Auto) 6.9 (2-11) % Eos % (Auto) 0.8 (0-4) % Baso % (Auto) 0.4 (0-2) % Lymph # (Auto) 1.4 (1.2-4.9) X10*3/uL [place] # (Auto) 0.8 (0.1-1.2) X10*3/uL Eos # (Auto) 0.1 (0.0-0.4) X10*3/uL Baso # (Auto) 0.1 (0.0-0.2) X10*3/uL Abs Immat Gran (auto) 0.03 (0.00-0.03) X10*3/uL Absolute Neuts (auto) 9.5 H (2.0-8.3) x10*3/uL Absolute Nucleated RBC 0.000 (0.0-0.012) X10*3/uL Nucleated RBC % (auto) 0.0 (0.0-0.2) /100WBC PT (10.0-13.1) SEC INR (0.9-1.1) APTT (26.0-36.4) SEC Sodium 138 (135-145) mmol/L Potassium 4.1 (3.3-5.1) mmol/L Chloride 107 (96-108) mmol/L Carbon Dioxide 17 L (22-29) mmol/L Anion Gap 18 (12-20) BUN 9 (9-16) mg/dL Creatinine 0.76 (0.5-1.4) mg/dL Estim Creat Clear Calc 109.5 Estimated GFR > 60 Random Glucose 96 (60-115) mg/dL Calcium 8.8 D (8.4-10.2) mg/dL Total Bilirubin 1.4 H (0.0-1.0) mg/dL AST 60 H (5-31) U/L ALT 40 H (0-31) U/L Alkaline Phosphatase 100 (39-117) U/L Total Protein 7.3 (6.5-8.0) g/dL Albumin 4.2 (3.5-5.0) g/dL Lipase 2022 H (8-78) U/L Urine Color Yellow Urine Appearance Clear Urine pH 6.0 (5.0-9.0) Ur Specific [place] 1.015 (1.005-1.025) Urine Protein Negative (Neg-Trace) mg/dL Urine Glucose (UA) Negative (Negative) mg/dL Urine Ketones Negative (Negative) mg/dL Urine Blood Small (1+) H (Negative) Urine Nitrite Negative (Negative) Ur Leukocyte Esterase Negative (Negative) Urine RBC 3-5 H (0-2) /HPF Urine WBC 0-5 (0-5) /HPF Ur Squamous Epith Cells 0-2 (0-2) /HPF Urine Bacteria None Seen (None Seen) Hyaline Casts 0-2 (0-2) /LPF Urine Test (NEGATIVE) COVID-19 (GLENDY) (Negative) COVID-19 Clin Com 12/19/22 12/19/22 12/19/22 Range/Units 00:55 03:10 03:13 WBC (4.8-10.8) X10*3/uL RBC (4.20-5.50) X10*6/uL Hgb (12.0-16.0) g/dl Hct (37.0-47.0) % MCV (80.0-98.0) fL MCH (27.0-33.0) pg MCHC (31.0-35.0) g/dl RDW (11.0-16.0) % Plt Count (160-400) X10*3/uL MPV (9.4-12.3) fL Immature Gran % (Auto) (0.0-0.4) % Neut % (Auto) (45-73) % Lymph % (Auto) (20-40) % [place] % (Auto) (2-11) % Eos % (Auto) (0-4) % Baso % (Auto) (0-2) % Lymph # (Auto) (1.2-4.9) X10*3/uL [place] # (Auto) (0.1-1.2) X10*3/uL Eos # (Auto) (0.0-0.4) X10*3/uL Baso # (Auto) (0.0-0.2) X10*3/uL Abs Immat Gran (auto) (0.00-0.03) X10*3/uL Absolute Neuts (auto) (2.0-8.3) x10*3/uL Absolute Nucleated RBC (0.0-0.012) X10*3/uL Nucleated RBC % (auto) (0.0-0.2) /100WBC PT 12.0 (10.0-13.1) SEC INR 1.0 (0.9-1.1) APTT 36.1 (26.0-36.4) SEC Sodium (135-145) mmol/L Potassium (3.3-5.1) mmol/L Chloride (96-108) mmol/L Carbon Dioxide (22-29) mmol/L Anion Gap (12-20) BUN (9-16) mg/dL Creatinine (0.5-1.4) mg/dL Estim Creat Clear Calc Estimated GFR Random Glucose (60-115) mg/dL Calcium (8.4-10.2) mg/dL Total Bilirubin (0.0-1.0) mg/dL AST (5-31) U/L ALT (0-31) U/L Alkaline Phosphatase (39-117) U/L Total Protein (6.5-8.0) g/dL Albumin (3.5-5.0) g/dL Lipase (8-78) U/L Urine Color Urine Appearance Urine pH (5.0-9.0) Ur Specific [place] (1.005-1.025) Urine Protein (Neg-Trace) mg/dL Urine Glucose (UA) (Negative) mg/dL Urine Ketones (Negative) mg/dL Urine Blood (Negative) Urine Nitrite (Negative) Ur Leukocyte Esterase (Negative) Urine RBC (0-2) /HPF Urine WBC (0-5) /HPF Ur Squamous Epith Cells (0-2) /HPF Urine Bacteria (None Seen) Hyaline Casts (0-2) /LPF Urine Test NEGATIVE (NEGATIVE) COVID-19 (GLENDY) Negative (Negative) COVID-19 Clin Com See Note <Pascual Hou MD - Last Filed: 12/19/22 05:00> Independent Interpretation I performed an independent interpretation of an: EKG ( sinus bradycardia with a rate of 59 beats per minute. No ST segment elevations or depressions. Nondiagnostic EKG) <Rc Orozco - Last Filed: 12/19/22 01:46> Radiology Impression Discussion of test interpretation with radiology: I have reviewed the radiologist's reading. <Pascual Hou MD - Last Filed: 12/19/22 05:00> Radiologist Impression: CT/CT abdomen pelvis w IV con IMPRESSION: *? There is a 1.4 cm stone in the gallbladder neck associated with mild gallbladder distention. No pericholecystic abnormalities. Cholecystitis not excluded. Consider right upper quadrant ultrasound for further evaluation. *? Mild prominence of the common bile duct measuring up to 8 mm. If there is concern for choledocholithiasis, recommend right upper quadrant ultrasound or MRCP. *? Leiomyomatous uterus. Suspect subserosal fibroid along the right lateral uterus versus the right ovary. Consider nonemergent pelvic ultrasound for further evaluation. *? There is a 2.2 cm hypodensity in hepatic segment peripheral nodular enhancement matching that of blood pool compatible with a hemangioma. <Pascual Hou MD - Last Filed: 12/19/22 05:00> Discharge Plan Discharge Clinical Impression: Acute gallstone pancreatitis <Rc Orozco - Last Filed: 12/19/22 01:46> Patient Disposition: Admitted As Inpatient <Rc Orozco - Last Filed: 12/19/22 01:46>
[2022-12-19 00:56] LABS: MANUAL DIFF FLAG NO
[2022-12-19 00:58] LABS: Basophils Absolute Auto 0.1 X10*3/uL (0.0-0.2); Basophils Percent Auto 0.4 % (0-2); Eosinophils Absolute Auto 0.1 X10*3/uL (0.0-0.4); Eosinophils Percent Auto 0.8 % (0-4); Hematocrit 40.7 % (37.0-47.0); Hemoglobin 12.8 g/dl (12.0-16.0); Imm Gran Abs Auto 0.03 X10*3/uL (0.00-0.03); Imm Gran Pct Auto 0.3 % (0.0-0.4); Lymphocytes Absolute Auto 1.4 X10*3/uL (1.2-4.9); Lymphocytes Percent Auto 11.7 % (20-40); Mean Corpuscular HGB Conc 31.4 g/dl (31.0-35.0); Mean Corpuscular Hemoglobin 26.6 pg (27.0-33.0); Mean Corpuscular Volume 84.4 fL (80.0-98.0); Mean Platelet Volume 10.2 fL (9.4-12.3); Monocytes Absolute Auto 0.8 X10*3/uL (0.1-1.2); Monocytes Percent Auto 6.9 % (2-11); Neutrophils Absolute Auto 9.5 x10*3/uL (2.0-8.3); Neutrophils Percent Auto 79.9 % (45-73); Platelet Count 385 X10*3/uL (160-400); Red Blood Count 4.82 X10*6/uL (4.20-5.50); White Blood Count 11.9 X10*3/uL (4.8-10.8)
[2022-12-19 01:08] LABS: Appearance Urine Clear; Color Urine Yellow; Glucose Urine UA Negative (Negative); Leukocyte Esterase Urine Negative (Negative); Nitrite Urine Negative (Negative); Specific Gravity - Urine 1.015 (1.005-1.025); UMIC TRIGGER UACC YES; Urine Blood Small (1+) (Negative); Urine Ketones Negative (Negative); Urine Protein Negative (Neg-Trace)
[2022-12-19 01:09] LABS: UPreg QC Valid YES; Urine Pregnancy NEGATIVE (NEGATIVE)
[2022-12-19] MEDS: Morphine Sulfate 4 MG/ML CARTRIDGE IVPUSH (01:18)
[2022-12-19] MEDS: 0.9 % Sodium Chloride 1,000 ML 999 ML IV (01:18)
[2022-12-19] MEDS: ondansetron HCL 4 MG/2 ML VIAL IVPUSH (01:18)
[2022-12-19 01:20] LABS: Bacteria Urine None Seen (None Seen); Hyaline Casts Urine 0-2 /LPF (0-2); Squamous Epithelial Cell Urine 0-2 /HPF (0-2); WBC Urine 0-5 /HPF (0-5)
[2022-12-19 01:34] LABS: Alanine Aminotransferase 40 U/L (0-31); Albumin Level 4.2 g/dL (3.5-5.0); Alkaline Phosphatase 100 U/L (39-117); Anion Gap 18 (12-20); Aspartate Amino Transferase 60 U/L (5-31); Bilirubin Total 1.4 mg/dL (0.0-1.0); Blood Urea Nitrogen 9 mg/dL (9-16); Calcium 8.8 mg/dL (8.4-10.2); Carbon Dioxide 17 mmol/L (22-29); Chloride 107 mmol/L (96-108); Creatinine Clr Calc Pharmacy 109.5; Estimated Glomerular Filt Rate > 60; Glucose Random 96 mg/dL (60-115); Lipase 2022 U/L (8-78); Potassium 4.1 mmol/L (3.3-5.1); Sodium 138 mmol/L (135-145); Total Protein 7.3 g/dL (6.5-8.0)
[2022-12-19] MEDS: iohexoL 350 MG/ML 100 ML INFUS..BTL 85 ML IV (01:51)
[2022-12-19 03:30] LABS: Partial Thromboplastin Time 36.1 SEC (26.0-36.4)
[2022-12-19 03:34] LABS: COVID-19 Test Negative (Negative); IDNOW Serial# 16C4AD1C
--- NOTE | 2022-12-19 04:09 | P.HPGS_ITS ---
History of Present Illness History of Present Illness Date of Service: 12/19/22 Chief complaint: Biliary Colic Narrative: Penny Birmingham is a 52 year old female seen because of multiple episodes of abdominal pain. This last episode started a few days ago, but she notes that for the past year she has been having pain that occurs after eating. She has some improvement at this time. She notes that the pain was accompanied by nausea but she has had no recent vomiting. There has been no dysphagia, odynophagia, hematemesis or unexplained weight loss. She denies any chest pain or difficulty breathing. The patient reports a history of thyroid cancer. She was offered an rn managed care but declined. Review of Systems Review of Systems: Yes all other systems are reviewed and are negative Constitutional: Constitutional: Reports as per [facility] Past Medical History Medical History Asthma History of renal stone Hypothyroid Iron deficiency anemia Left shoulder pain Thyroid cancer Varicose vein of leg Surgical History Surgical History H/O colonoscopy History of lithotripsy Hx of thyroidectomy Status post phlebectomy Social History Social History Household Members: Spouse Housing: House Alcohol intake: current Alcohol intake frequency: holidays/special occasions o nly Alcohol type: hard liquor Patient Tobacco Use Status: Never used Tobacco Smoked in Last 30 Days: No Use of substances other than those prescribed or required for medical reasons: No Currently Displaying Signs/Symptoms of Drug Intoxication Withdrawal: No Have you been hit, kicked, punched, or otherwise hurt by someone within the past year? 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 Allergies Allergy/AdvReac Type Severity Reaction Status Date / Time No Known Allergies Allergy Verified 07/30/22 09:27 [No Known Allergies*] Active Medications: Current Medications Hydromorphone HCl (Hydromorphone Hcl 0.5 Mg/0.5 Ml Syringe) 0.25 mg IVPUSH Q2H PRN; Protocol PRN Reason: Pain, Moderate (Pain Scale 4-6 Lactated Ringer's (Lr) 1,000 mls @ 100 mls/hr IVCONT .Q10H NATHAN Ondansetron HCl (Ondansetron Hcl 4 Mg/2 Ml Vial) 4 mg IVPUSH Q8H PRN PRN Reason: Nausea and Vomiting Pharmacy Consult (Consult Rx Perform Med Rec) 1 each MISCELLANE ONCE PRN PRN Reason: Consult order Sodium Chloride (0.9 % Sodium Chloride Flush 3 Ml Syringe) 3 ml IVFLUSH QSHIFT [facility] Home Medications Medication Instructions Recorded Confirmed Last Taken Type albuterol sulfate 90 mcg/actuation 2 puff inhalation Q6H PRN 09/08/20 12/19/22 12/18/22 History aerosol inhaler (ProAir HFA) Shortness Of Breath Or Wheezing budesonide-formoterol HFA 160 2 inh inhalation BID 11/05/21 12/19/22 12/18/22 History mcg-4.5 mcg/actuation aerosol inhaler (Symbicort) cholecalciferol (vitamin D3) 50 50 mcg PO DAILY 11/05/21 12/19/22 12/18/22 History mcg (2,000 unit) capsule levothyroxine 100 mcg tablet 100 mcg PO DAILY@0600 11/05/21 12/19/22 12/18/22 History melatonin 2.5 mg chewable tablet 10 mg PO BEDTIME 12/19/22 12/19/22 12/18/22 History (VitaJoy Melatonin) Physical Exam Vital Signs: Vital Signs: Last Vital Signs Temp 98.0 F 12/19/22 01:05 Pulse 71 12/19/22 01:05 Resp 16 12/19/22 01:18 BP 119/64 12/19/22 01:05 Pulse Ox 98 12/19/22 01:05 O2 Del Method 12/19/22 01:05 BMI result Body Mass Index 30.8 The patient is non-toxic & in good spirits NC/AT, PERRLA, EOMI Mood, affect & judgment all appear appropriate Sclera anicteric conjunctiva pink and moist Oropharynx is clear with no aphthous ulcers, Mallampati class 4, mucous membranes moist Neck is supple with no masses, adenopathy or bruits Heart is regular, normal S1-S2 no rubs or murmurs Lungs are clear and equal anteriorly with no audible wheezing, rubs or dullness to percussion Abdomen is overweight with no demonstrable hernias. Epigastric and right upper quadrant tenderness is localized but there is some radiation and discomfort in the right lower quadrant. No HSM, rebound, rigidity, guarding, masses or bruits are present. Rectal exam is deferred Skin has good turgor and is free of rashes Extremities free of cyanosis clubbing edema Results Results Labs: Short CBC 12/19/22 Range/Units 00:52 WBC 11.9 H (4.8-10.8) X10*3/uL Hgb 12.8 (12.0-16.0) g/dl Hct 40.7 (37.0-47.0) % Plt Count 385 (160-400) X10*3/uL BMP 12/19/22 00:52 Sodium 138 Potassium 4.1 Chloride 107 Carbon Dioxide 17 L BUN 9 Creatinine 0.76 Calcium 8.8 D Liver Function 12/19/22 Range/Units 00:52 Total Bilirubin 1.4 H (0.0-1.0) mg/dL AST 60 H (5-31) U/L ALT 40 H (0-31) U/L Alkaline Phosphatase 100 (39-117) U/L Albumin 4.2 (3.5-5.0) g/dL Urine 12/19/22 12/19/22 Range/Units 00:55 00:55 Urine Color Yellow Urine Appearance Clear Urine pH 6.0 (5.0-9.0) Ur Specific [place] 1.015 (1.005-1.025) Urine Protein Negative (Neg-Trace) mg/dL Urine Glucose (UA) Negative (Negative) mg/dL Urine Test NEGATIVE (NEGATIVE) Abdomen CT scan report/results: report reviewed and image reviewed CT scan - pelvis: report reviewed and image reviewed Assessment and Plan (1) Acute gallstone pancreatitis: Status: Acute Plan I explained the symptoms of biliary colic, gallstone pancreatitis and recommen ded laparoscopic cholecystectomy, unless her labs remain elevated and an MRCP or possible ERCP is required. I also reviewed the inherent risks to surgery which include, but are not limited to: Bleeding that could require another operation or blood transfusion, the need for open surgery, the unlikely but possible issue of bile leak that could require an ERCP, the risk of retained common duct stones that could require an ERCP, the risk of common bile duct injury which would require transfer to a larger institution for another operation. Patient seemed to understand her options, declined a jewel inserter or 2nd opinion and wants to proceed. Instructions regarding diet and activity reviewed and apparently understood. The patient is advised to avoid rich fatty foods postoperatively to avoid GI di stress/diarrhea and advised to not lift more than 20 lb for medical reasons to minimize the risk of hernia postoperatively. I recommended that she discuss these restrictions with her employer and that she is not disabled during this time frame but can perform light duty. The patient's questions seemed to be satisfactorily answered. The precipitous improvement in the patient's symptoms of abdominal pain is suggestive of gallstone pancreatitis. Will trend labs and proceed according to her clinical status and lab values. I have added the patient on for OR tomorrow & have the consent. Continue supportive management including antiemetics and pain medicine. She can have clear liquids today and I have started Zosyn. Will trend her labs and make her NPO after midnight. If morning labs show continued elevation of her lipase or increase in her transaminases/LFTs, MRCP will be required as well as consultation with Gastroenterology. Time Spent With Patient Time: Total time managing care of this patient today ____ minutes. Quality Stroke Does the patient have a stroke diagnosis?: No VTE Prior VTE?: No VTE Risk Level:: Surgical - moderate VTE Device Contraindication: N/A - Device Ordered VTE Drug Contraindication: Treatment Not Indicated Procedures Date of Service Date of Service: 12/19/22
[2022-12-19] MEDS: HYDROmorphone HCl 0.5 MG/0.5 ML SYRINGE 0.25 MG IVPUSH ×4 (04:22→17:21)
[2022-12-19] MEDS: Lactated Ringers 1,000 ML 100 ML IVCONT ×3 (04:23→21:17)
[2022-12-19 05:56] LABS: Alanine Aminotransferase 40 U/L (0-31); Albumin Level 3.7 g/dL (3.5-5.0); Alkaline Phosphatase 89 U/L (39-117); Anion Gap 12 (12-20); Aspartate Amino Transferase 50 U/L (5-31); Blood Urea Nitrogen 8 mg/dL (9-16); Calcium 8.2 mg/dL (8.4-10.2); Carbon Dioxide 23 mmol/L (22-29); Chloride 110 mmol/L (96-108); Creatinine Clr Calc Pharmacy 118.8; Estimated Glomerular Filt Rate > 60; Glucose Random 98 mg/dL (60-115); Sodium 141 mmol/L (135-145); Total Protein 6.2 g/dL (6.5-8.0)
[2022-12-19] MEDS: 0.9 % Sodium Chloride Flush 3 ML SYRINGE IVFLUSH ×2 (07:37→15:17)
--- NOTE | 2022-12-19 08:02 | PHA.MEDREC ---
Pharmacy Consult ? Medication Reconciliation Pharmacy has completed the medication reconciliation. Spoke to patient to confirm meds.
--- NOTE | 2022-12-19 10:12 | MHC.CM.PN ---
Female 52 DX Biliary colic. She lives with her . She is independent all functional mobility. Vaxxed x3. Declined the offer to document a HCP. PCP is Dr Riojas
[2022-12-19] MEDS: Piperacillin Sodium/Tazobactam 3.375 GM in 0.9 % Sodium Chloride 50 ML IV ×3 (11:33→21:58)
[2022-12-19] MEDS: Ibuprofen 400 MG TABLET PO (15:14)
[2022-12-19] MEDS: Pantoprazole Sodium 40 MG/10 ML VIAL 80 MG IVPUSH (15:16)
[2022-12-20] VITALS (17 sets, daily range): BP systolic 103–159; BP diastolic 54–83; PULSE 57–75; RESP 12–19; TEMP 36.2–37.1; O2SAT 91–98
[2022-12-20] MEDS: Acetaminophen 325 MG TABLET 975 MG PO (03:10)
[2022-12-20] MEDS: Piperacillin Sodium/Tazobactam 3.375 GM in 0.9 % Sodium Chloride 50 ML IV ×4 (03:44→21:43)
[2022-12-20 06:07] LABS: MANUAL DIFF FLAG NO
[2022-12-20 06:14] LABS: Basophils Percent Auto 0.4 % (0-2); Eosinophils Absolute Auto 0.1 X10*3/uL (0.0-0.4); Eosinophils Percent Auto 1.8 % (0-4); Hematocrit 34.7 % (37.0-47.0); Hemoglobin 10.9 g/dl (12.0-16.0); Imm Gran Abs Auto 0.03 X10*3/uL (0.00-0.03); Imm Gran Pct Auto 0.4 % (0.0-0.4); Lymphocytes Absolute Auto 1.7 X10*3/uL (1.2-4.9); Lymphocytes Percent Auto 21.3 % (20-40); Mean Corpuscular HGB Conc 31.4 g/dl (31.0-35.0); Mean Corpuscular Hemoglobin 26.3 pg (27.0-33.0); Mean Corpuscular Volume 83.8 fL (80.0-98.0); Mean Platelet Volume 10.7 fL (9.4-12.3); Monocytes Absolute Auto 0.6 X10*3/uL (0.1-1.2); Neutrophils Absolute Auto 5.5 x10*3/uL (2.0-8.3); Neutrophils Percent Auto 69.1 % (45-73); Platelet Count 343 X10*3/uL (160-400); Red Blood Count 4.14 X10*6/uL (4.20-5.50); Red Cell Distribution Width 14.9 % (11.0-16.0); White Blood Count 7.9 X10*3/uL (4.8-10.8)
[2022-12-20] MEDS: Lactated Ringers 1,000 ML 100 ML IVCONT ×3 (06:26→22:32)
[2022-12-20 06:43] LABS: Lipase 82 U/L (8-78)
[2022-12-20 06:47] LABS: Alanine Aminotransferase 35 U/L (0-31); Albumin Level 3.5 g/dL (3.5-5.0); Alkaline Phosphatase 102 U/L (39-117); Anion Gap 12 (12-20); Aspartate Amino Transferase 27 U/L (5-31); Bilirubin Total 1.5 mg/dL (0.0-1.0); Blood Urea Nitrogen 8 mg/dL (9-16); Calcium 8.2 mg/dL (8.4-10.2); Carbon Dioxide 25 mmol/L (22-29); Chloride 110 mmol/L (96-108); Creatinine Clr Calc Pharmacy 122.3; Estimated Glomerular Filt Rate > 60; Glucose Random 85 mg/dL (60-115); Potassium 3.9 mmol/L (3.3-5.1); Sodium 143 mmol/L (135-145)
--- NOTE | 2022-12-20 06:50 | PM.PNGS ---
Subjective Subjective Date of Service: 12/20/22 Patient reports: feels better Interval history: Occlusion of the presenting epigastric and right upper quadrant/right lower quadrant pain. She denies any new complaints. The option of outpatient lap choly versus proceeding with OR this morning was reviewed. The inherent risks of laparoscopic cholecystectomy, possible open cholecystectomy and possible cholangiogram were again discussed with the patient and her questions seemed to be satisfactorily answered. She declined an edge cutting machine operator and wanted to proceed this morning. Physical Exam Vital Signs: Vital Signs: Last Vital Signs Temp 97.7 F 12/20/22 02:55 Pulse 62 12/20/22 02:55 Resp 18 12/20/22 02:55 BP 118/54 L 12/20/22 02:55 Pulse Ox 98 12/20/22 02:55 O2 Del Method 12/20/22 02:55 BMI result Body Mass Index 30.8 On exam she is afebrile and nontoxic Sclera remain anicteric She is in no acute respiratory distress Abdomen is obese and soft with some right upper quadrant discomfort but she is certainly more improved with less pain than yesterday. Objective Data Active Medications Acetaminophen (Acetaminophen 325 Mg Tablet) 975 mg PO Q6H PRN PRN Reason: Pain, Mild (Pain Scale 1-3) Last Admin: 12/20/22 03:10 Dose: 975 mg Documented By: JOSE Hydromorphone HCl (Hydromorphone Hcl 0.5 Mg/0.5 Ml Syringe) 0.25 mg IVPUSH Q2H PRN; Protocol PRN Reason: Pain, Moderate (Pain Scale 4-6 Last Admin: 12/19/22 17:21 Dose: 0.25 mg Documented By: JEANCARLOS Lactated Ringer's (Lr) 1,000 mls @ 100 mls/hr IVCONT .Q10H NATHAN Last Admin: 12/20/22 06:26 Dose: 100 mls/hr Documented By: JOSE Piperacillin Sod/Tazobactam (Sod 3.375 gm/ Sodium Chloride) 50 mls @ 100 mls/hr IV Q6H NATHAN Last Infusion: 12/20/22 04:24 Dose: 0 mls/hr Documented By: JOSE Ibuprofen (Ibuprofen 400 Mg Tablet) 400 mg PO Q6H PRN PRN Reason: Pain, Mild (Pain Scale 1-3) Last Admin: 12/19/22 15:14 Dose: 400 mg Documented By: JEANCARLOS Ondansetron HCl (Ondansetron Hcl 4 Mg/2 Ml Vial) 4 mg IVPUSH Q8H PRN PRN Reason: Nausea and Vomiting Pharmacy Consult (Consult Rx Perform Med Rec) 1 each MISCELLANE ONCE PRN PRN Reason: Consult order Sodium Chloride (0.9 % Sodium Chloride Flush 3 Ml Syringe) 3 ml IVFLUSH QSHIFT [facility] Last Admin: 12/19/22 20:20 Dose: Not Given Documented By: JOSE Non-Admin Reason: IV Running Labs 12/20/22 05:21 12/20/22 05:21 Labs: Laboratory Results - last 24 hr 12/20/22 12/20/22 12/20/22 05:21 05:21 05:21 MCV 83.8 MCH 26.3 L MCHC 31.4 RDW 14.9 Plt Count 343 MPV 10.7 Immature Gran % (Auto) 0.4 Neut % (Auto) 69.1 Lymph % (Auto) 21.3 [place] % (Auto) 7.0 Eos % (Auto) 1.8 Baso % (Auto) 0.4 Lymph # (Auto) 1.7 [place] # (Auto) 0.6 Eos # (Auto) 0.1 Baso # (Auto) 0.0 Abs Immat Gran (auto) 0.03 Absolute Neuts (auto) 5.5 Absolute Nucleated RBC 0.000 Nucleated RBC % (auto) 0.0 Anion Gap 12 Estim Creat Clear Calc 122.3 Estimated GFR > 60 Random Glucose 85 Calcium 8.2 L Total Bilirubin 1.5 H AST 27 ALT 35 H Alkaline Phosphatase 102 Total Protein 6.0 L Albumin 3.5 Lipase 82 H Procedures Date of Service Date of Service: 12/20/22 Progress Note: A&P Assessment and plan (1) Acute gallstone pancreatitis: Status: Acute Plan As noted, options are again discussed with the patient. She seems to understand and wants to proceed with a lap choly and understands there is a chance that it may convert to an open procedure in a bile duct x-ray may be required. Keep NPO. Avoid urinary bladder aviation neuropsychologist. Continue SCDs. Continue antibiotics. Time Spent With Patient Time: Total time managing care of this patient today ____ minutes. Quality Stroke Does the patient have a stroke diagnosis?: No VTE Prior VTE?: No VTE Risk Level:: Surgical - moderate VTE Device Contraindication: N/A - Device Ordered VTE Drug Contraindication: Treatment Not Indicated
--- NOTE | 2022-12-20 07:35 | MHC.SHP ---
Pre-Procedural Eval Section A Date of Service: 12/20/22 The patient is an INPATIENT: Yes The History & Physical has been completed within 30 days and I have reviewed it.: Yes Section B Chief Complaint: Biliary Colic Allergies: Allergies Allergy/AdvReac Type Severity Reaction Status Date / Time No Known Allergies Allergy Verified 07/30/22 09:27 [No Known Allergies*] Plan I have reviewed the history and physical and performed a pertinent physical examination on my patient. No changes have occurred unless specified. Time Spent With Patient Time: Total time managing care of this patient today ____ minutes.
--- NOTE | 2022-12-20 07:36 | P.OP_ITS ---
Operative Note Operative Note Date of Service: 12/20/22 Narrative: Preop diagnosis: [Gallstone pancreatitis] Postop diagnosis: [same] Procedure: [lap nelda] Surgeon: Paxton Healy MD Assist: [Arvin Leos PA-C] Anesthesia: [GET, ropivacaine 0.5%] Estimated blood loss: [100cc] Drain: TIFFANIE in Morison's pouch Specimen: [Gallbladder with contents] Intraoperative findings: [Edematous gallbladder and colton; cystic duct was 5-6 mm and cystic artery 3-4 mm. A posterior cystic artery branch was identified as well, approximately 3 mm and diameter.] Indications: [The patient is a 52-year-old woman who presented with abdominal pain and on CT noted to have gallstones. She also had a lipase of 2K and a leukocytosis. Options including outpatient workup and 2nd opinion were reviewed and apparently understood. I recommended proceeding with a laparoscopic cholecystectomy, possibly open, possible cholangiogram and reviewed the inherent risks of bleeding, infection, need for open surgery, risk of recurrence of pancreatitis, risk of retained common duct stones, risk of common bile duct injury or bile leak that could require ERCP. Patient seemed understand all of her options. Activity restrictions and dietary recommendations were also discussed with the patient. She seemed understand all of her options, declined an print production associate and wanted to proceed.] Procedure: [The patient was identified in preoperative holding and again in the operating room and placed supine on the table. The patient voided bladder recreation therapy director, sequential compression stockings were in place, subcu heparin had been administered and antibiotics per protocol were given. The patient was induced in general endotracheal anesthesia administered with excellent effect. An appropriate time-out was performed. A footboard was utilized. The patient's abdomen was widely prepped and draped in the usual manner for surgery using chlorhexidine. Preemptive local was used at all trocar insertion sites. Again at the supraumbilical location and after infiltrating local, made a stab incision and placed a Veress needle without difficulty. An appropriate drop test was performed and a pneumoperitoneum of 15 mmHg was obtained using carbon dioxide. opening pressure was 6 mmHg. Next, the needle was withdrawn and a 5 mm/30 degree laparoscoped over Optiview trocar was used to access the abdomen without incident. Upon examining the abdomen, there was no evidence of injury from the Veress needle or trocar. Next, 5 mm trocars were placed in the epigastric, subcostal and right anterior axillary line just above the line of the umbilicus. Under direct laparoscopic vision, the 5 mm umbilical port was upsized to a 12 mm. The patient was then positioned in reverse Trendelenburg position and banked left. The gallbladder was clearly identified and grasped by its fundus. It was retracted cranially and anteriorly and dissection began in the cystic triangle. The cystic duct was identified at its junction on the gallbladder and dissection began laterally, then circumferentially dissected using the [place] dissector and hook. The cystic artery was then carefully identified and circumferentially dissected. Once dissection of both structures was complete and the critical view of safety demonstrated, the duct and artery were double clipped proximally and once distally and sharply divided. Electrocautery was used to remove the gallbladder from its fossa on the liver. Liver bed was edematous and had diffuse ooze. Once the specimen was removed, the liver bed was inspected for hemostasis and the clips were noted to be on the respective structures. The gallbladder was placed in an Endo-Catch bag and delivered through the umbilicus under direct laparoscopic vision. The abdomen was again inspected with the laparoscoped and a abdomen deflated to assess for hemostasis. The patient was returned to neutral position, the abdomen deflated and the fascia of the supraumbilical incision closed with interrupted Vicryl sutures. Skin was closed with 4-0 Monocryl subcuticular sutures. Mastisol and Steri-Strips were applied followed by Band-Aids. The patient tolerated the procedure well and was extubated recovered in stable condition. All sponge instrument counts were correct. At the patient's request I called her daughterPerlita at [phone] to her of the operation and plan to keep her overnight. The temporary drain was also reviewed. Her questions seemed to be satisfactorily answered.]
--- NOTE | 2022-12-20 12:03 | P.CONAN_ITS ---
HPI - Anesthesia Eval Consult details Narrative: healtyfor ro gallbladder PMFSH Active Problems Active Problems: All Active Problems (Updated 12/19/22 @ 03:49 by Pascual Hou MD) Varicose veins of right lower extremity with inflammation (Acute) Impingement syndrome, shoulder, left (Acute) Mild carpal tunnel syndrome of left wrist (Acute) Osteoarthritis of left acromioclavicular joint (Acute) Varicose veins of left lower extremity with inflammation (Acute) Acute gallstone pancreatitis (Acute) Past Medical History Medical History Asthma History of renal stone Hypothyroid Iron deficiency anemia Left shoulder pain Thyroid cancer Varicose vein of leg Patient : No (No period for 4 years) Family History Family history of problems with anesthesia: No Surgical History Surgical History H/O colonoscopy History of lithotripsy Hx of shoulder surgery Hx of thyroidectomy Status post phlebectomy History of Problems with Anesthesia: No Social History Social History Household Members: Spouse Housing: House Alcohol intake: current Alcohol intake frequency: holidays/special occasions only Alcohol type: hard liquor Patient Tobacco Use Status: Never used Tobacco Smoked in Last 30 Days: No Use of substances other than those prescribed or required for medical reasons: No Currently Displaying Signs/Symptoms of Drug Intoxication Withdrawal: No Have you been hit, kicked, punched, or otherwise hurt by someone within the past year? 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 Allergies Allergy/AdvReac Type Severity Reaction Status Date / Time No Known Allergies Allergy Verified 07/30/22 09:27 [No Known Allergies*] Active Medications: Current Medications Acetaminophen (Acetaminophen 325 Mg Tablet) 975 mg PO Q6H PRN PRN Reason: Pain, Mild (Pain Scale 1-3) Last Admin: 12/20/22 03:10 Dose: 975 mg Fentanyl (Fentanyl Citrate/Pf 100 Mcg/2 Ml Vial) 50 mcg IVPUSH Q5M PRN; Protocol PRN Reason: Pain, Severe (Pain Scale 7-10) Hydromorphone HCl (Hydromorphone Hcl 0.5 Mg/0.5 Ml Syringe) 0.25 mg IVPUSH Q2H PRN; Protocol PRN Reason: Pain, Moderate (Pain Scale 4-6 Last Admin: 12/19/22 17:21 Dose: 0.25 mg Lactated Ringer's (Lr) 1,000 mls @ 100 mls/hr IVCONT .Q10H [facility] Last Admin: 12/20/22 06:26 Dose: 100 mls/hr Piperacillin Sod/Tazobactam (Sod 3.375 gm/ Sodium Chloride) 50 mls @ 100 mls/hr IV Q6H [facility] Last Infusion: 12/20/22 09:37 Dose: Infused Ibuprofen (Ibuprofen 400 Mg Tablet) 400 mg PO Q6H PRN PRN Reason: Pain, Mild (Pain Scale 1-3) Last Admin: 12/19/22 15:14 Dose: 400 mg Ondansetron HCl (Ondansetron Hcl 4 Mg/2 Ml Vial) 4 mg IVPUSH Q8H PRN PRN Reason: Nausea and Vomiting Ondansetron HCl (Ondansetron Hcl 4 Mg/2 Ml Vial) 4 mg IVPUSH ONCE PRN PRN Reason: Nausea and Vomiting Oxycodone HCl (Oxycodone Hcl Immed Release 5 Mg Tablet) 5 mg PO ONCE PRN PRN Reason: Pain, Severe (Pain Scale 7-10) Pharmacy Consult (Consult Rx Perform Med Rec) 1 each MISCELLANE ONCE PRN PRN Reason: Consult order Sodium Chloride (0.9 % Sodium Chloride Flush 3 Ml Syringe) 3 ml IVFLUSH [facility] Last Admin: 12/20/22 07:05 Dose: Not Given Home Medications Medication Instructions Recorded Confirmed Last Taken Type albuterol sulfate 90 mcg/actuation 2 puff inhalation Q6H PRN 09/08/20 12/19/2223 History aerosol inhaler (ProAir HFA) Shortness Of Breath Or Wheezing budesonide-formoterol HFA 160 2 inh inhalation BID 11/05/21 12/19/22 12/18/22 History mcg-4.5 mcg/actuation aerosol inhaler (Symbicort) cholecalciferol (vitamin D3) 50 50 mcg PO DAILY 11/05/21 12/19/22 12/18/22 History mcg (2,000 unit) capsule levothyroxine 100 mcg tablet 100 mcg PO DAILY@0600 11/05/21 12/19/22 12/18/22 History melatonin 2.5 mg chewable tablet 10 mg PO BEDTIME 12/19/22 12/19/22 12/18/22 History (VitaJoy Melatonin) Exam Exam Date and Time: December 20, 2022 1203 Height,Weight and Vital Signs: Height 5 ft 10 in Weight 97.522 kg Last Vital Signs Temp 97.1 F 12/20/22 09:27 Pulse 65 12/20/22 09:27 Resp 15 12/20/22 09:27 BP 138/65 12/20/22 09:27 Pulse Ox 98 12/20/22 09:27 O2 Del Method 12/20/22 09:27 Pertinent Lab Results Pertinent Lab Results: Laboratory Tests 12/19/22 12/19/22 12/19/22 00:52 00:52 00:55 WBC 11.9 H RBC 4.82 Hgb 12.8 Hct 40.7 MCV 84.4 MCH 26.6 L MCHC 31.4 RDW 15.0 Plt Count 385 MPV 10.2 Immature Gran % (Auto) 0.3 Neut % (Auto) 79.9 H Lymph % (Auto) 11.7 L [place] % (Auto) 6.9 Eos % (Auto) 0.8 Baso % (Auto) 0.4 Lymph # (Auto) 1.4 [place] # (Auto) 0.8 Eos # (Auto) 0.1 Baso # (Auto) 0.1 Abs Immat Gran (auto) 0.03 Absolute Neuts (auto) 9.5 H Absolute Nucleated RBC 0.000 Nucleated RBC % (auto) 0.0 PT INR APTT Sodium 138 Potassium 4.1 Chloride 107 Carbon Dioxide 17 L Anion Gap 18 BUN 9 Creatinine 0.76 Estim Creat Clear Calc 109.5 Estimated GFR > 60 Random Glucose 96 Calcium 8.8 D Total Bilirubin 1.4 H AST 60 H ALT 40 H Alkaline Phosphatase 100 Total Protein 7.3 Albumin 4.2 Lipase 2022 H Urine Color Yellow Urine Appearance Clear Urine pH 6.0 Ur Specific [place] 1.015 Urine Protein Negative Urine Glucose (UA) Negative Urine Ketones Negative Urine Blood Small (1+) H Urine Nitrite Negative Ur Leukocyte Esterase Negative Urine RBC 3-5 H Urine WBC 0-5 Ur Squamous Epith Cells 0-2 Urine Bacteria None Seen Hyaline Casts 0-2 Urine Test COVID-19 (GLENDY) COVID-19 Clin Com Blood Type Antibody Screen 12/19/22 12/19/22 12/19/22 00:55 03:10 03:13 WBC RBC Hgb Hct MCV MCH MCHC RDW Plt Count MPV Immature Gran % (Auto) Neut % (Auto) Lymph % (Auto) [place] % (Auto) Eos % (Auto) Baso % (Auto) Lymph # (Auto) [place] # (Auto) Eos # (Auto) Baso # (Auto) Abs Immat Gran (auto) Absolute Neuts (auto) Absolute Nucleated RBC Nucleated RBC % (auto) PT 12.0 INR 1.0 APTT 36.1 Sodium Potassium Chloride Carbon Dioxide Anion Gap BUN Creatinine Estim Creat Clear Calc Estimated GFR Random Glucose Calcium Total Bilirubin AST ALT Alkaline Phosphatase Total Protein Albumin Lipase Urine Color Urine Appearance Urine pH Ur Specific [place] Urine Protein Urine Glucose (UA) Urine Ketones Urine Blood Urine Nitrite Ur Leukocyte Esterase Urine RBC Urine WBC Ur Squamous Epith Cells Urine Bacteria Hyaline Casts Urine Test NEGATIVE COVID-19 (GLENDY) Negative COVID-19 Clin Com See Note Blood Type Antibody Screen 12/19/22 12/19/22 12/20/22 05:25 05:44 05:21 WBC 7.9 RBC 4.14 L Hgb 10.9 L Hct 34.7 L MCV 83.8 MCH 26.3 L MCHC 31.4 RDW 14.9 Plt Count 343 MPV 10.7 Immature Gran % (Auto) 0.4 Neut % (Auto) 69.1 Lymph % (Auto) 21.3 [place] % (Auto) 7.0 Eos % (Auto) 1.8 Baso % (Auto) 0.4 Lymph # (Auto) 1.7 [place] # (Auto) 0.6 Eos # (Auto) 0.1 Baso # (Auto) 0.0 Abs Immat Gran (auto) 0.03 Absolute Neuts (auto) 5.5 Absolute Nucleated RBC 0.000 Nucleated RBC % (auto) 0.0 PT INR APTT Sodium 141 Potassium 4.0 Chloride 110 H Carbon Dioxide 23 Anion Gap 12 BUN 8 L Creatinine 0.70 Estim Creat Clear Calc 118.8 Estimated GFR > 60 Random Glucose 98 Calcium 8.2 L D Total Bilirubin 1.0 AST 50 H ALT 40 H Alkaline Phosphatase 89 Total Protein 6.2 L Albumin 3.7 Lipase Urine Color Urine Appearance Urine pH Ur Specific [place] Urine Protein Urine Glucose (UA) Urine Ketones Urine Blood Urine Nitrite Ur Leukocyte Esterase Urine RBC Urine WBC Ur Squamous Epith Cells Urine Bacteria Hyaline Casts Urine Test COVID-19 (GLENDY) COVID-19 [place] Blood Type O Positive Antibody Screen NEGATIVE 12/20/22 12/20/22 05:21 05:21 WBC RBC Hgb Hct MCV MCH MCHC RDW Plt Count MPV Immature Gran % (Auto) Neut % (Auto) Lymph % (Auto) [place] % (Auto) Eos % (Auto) Baso % (Auto) Lymph # (Auto) [place] # (Auto) Eos # (Auto) Baso # (Auto) Abs Immat Gran (auto) Absolute Neuts (auto) Absolute Nucleated RBC Nucleated RBC % (auto) PT INR APTT Sodium 143 Potassium 3.9 Chloride 110 H Carbon Dioxide 25 Anion Gap 12 BUN 8 L Creatinine 0.68 Estim Creat Clear Calc 122.3 Estimated GFR > 60 Random Glucose 85 Calcium 8.2 L Total Bilirubin 1.5 H AST 27 ALT 35 H Alkaline Phosphatase 102 Total Protein 6.0 L Albumin 3.5 Lipase 82 H Urine Color Urine Appearance Urine pH Ur Specific [place] Urine Protein Urine Glucose (UA) Urine Ketones Urine Blood Urine Nitrite Ur Leukocyte Esterase Urine RBC Urine WBC Ur Squamous Epith Cells Urine Bacteria Hyaline Casts Urine Test COVID-19 (GLENDY) COVID-19 ybuy Com Blood Type Antibody Screen Airway Mallampati Class: I TM Dist: >3cm Neck ROM: Full Loose/Missing/Broken Teeth: No Heart: rr Lungs: cta Assessment and Plan Assessment Anesthesia Assessment: Anesthesia Plan Discussed and Chart Reviewed Final Anesthetic Review Family History of Problems with Anesthesia: No History of Problems with Anesthesia: No NPO: Yes ASA Class: II Final Preanesthetic Review: No Changes in Pt Med Stat, Meds/Allgs Chart Reviewed, Consent Obtained/Reviewed and Anes Risks/Benef Reviewed Patient Risk: Intermediate Procedure Risk: Intermediate Anesthetic Plan Anesthetic Plan: GA
[2022-12-20] MEDS: Acetaminophen 1,000 MG/100 ML PIGGYBACK 400 MG IV (12:15)
[2022-12-20] MEDS: ondansetron HCL 4 MG/2 ML VIAL IVPUSH (12:20)
[2022-12-20] MEDS: HYDROmorphone HCl 0.5 MG/0.5 ML SYRINGE 0.25 MG IVPUSH ×3 (12:57→23:30)
--- NOTE | 2022-12-20 16:57 | MHC.CM.PN ---
Patient s/p MAHAD OGDEN today DP Home with family assist and transport once medically cleared.
--- NOTE | 2022-12-20 17:14 | PC.NURSE ---
Pt c/o discomfort to chest. VSS. Pt assisted OOB and ambulated to BR. Pt with a lot of belching.
[2022-12-21] MEDS: Piperacillin Sodium/Tazobactam 3.375 GM in 0.9 % Sodium Chloride 50 ML IV ×2 (03:37→09:39)
[2022-12-21 03:49] VITALS: BP 137/69; PULSE 69; RESP 18; TEMP 36.6; O2SAT 95
[2022-12-21 06:47] LABS: MANUAL DIFF FLAG NO
[2022-12-21] MEDS: HYDROmorphone HCl 0.5 MG/0.5 ML SYRINGE 0.25 MG IVPUSH (07:09)
[2022-12-21 07:10] LABS: Alanine Aminotransferase 45 U/L (0-31); Albumin Level 3.6 g/dL (3.5-5.0); Alkaline Phosphatase 118 U/L (39-117); Anion Gap 13 (12-20); Aspartate Amino Transferase 34 U/L (5-31); Bilirubin Total 1.3 mg/dL (0.0-1.0); Blood Urea Nitrogen 6 mg/dL (9-16); Calcium 8.4 mg/dL (8.4-10.2); Carbon Dioxide 28 mmol/L (22-29); Chloride 105 mmol/L (96-108); Creatinine Clr Calc Pharmacy 96.7; Estimated Glomerular Filt Rate > 60; Glucose Random 93 mg/dL (60-115); Potassium 4.4 mmol/L (3.3-5.1); Sodium 142 mmol/L (135-145); Total Protein 6.1 g/dL (6.5-8.0)
[2022-12-21 07:44] LABS: Basophils Percent Auto 0.3 % (0-2); Eosinophils Percent Auto 0.2 % (0-4); Hematocrit 34.9 % (37.0-47.0); Imm Gran Abs Auto 0.04 X10*3/uL (0.00-0.03); Imm Gran Pct Auto 0.3 % (0.0-0.4); Mean Corpuscular HGB Conc 31.5 g/dl (31.0-35.0); Mean Corpuscular Hemoglobin 26.6 pg (27.0-33.0); Mean Corpuscular Volume 84.5 fL (80.0-98.0); Mean Platelet Volume 10.8 fL (9.4-12.3); Monocytes Absolute Auto 1.4 X10*3/uL (0.1-1.2); Monocytes Percent Auto 10.7 % (2-11); Neutrophils Absolute Auto 9.2 x10*3/uL (2.0-8.3); Neutrophils Percent Auto 72.5 % (45-73); Platelet Count 358 X10*3/uL (160-400); Red Blood Count 4.13 X10*6/uL (4.20-5.50); White Blood Count 12.6 X10*3/uL (4.8-10.8)
[2022-12-21 08:00] VITALS: BP 136/73; PULSE 77; RESP 18; TEMP 36.6; O2SAT 95
--- NOTE | 2022-12-21 08:43 | P.PNGS_ITS ---
Subjective Subjective Date of Service: 12/21/22 Patient reports: feels better Interval history: Patient reports that she has good analgesia. She is tolerating clear liquids and interested and advancing her diet. She denies any chest pain, difficulty breathing or shortness of breath. Physical Exam Vital Signs: Vital Signs: Last Vital Signs Temp 97.9 F 12/21/22 08:00 Pulse 77 12/21/22 08:00 Resp 18 12/21/22 08:00 BP 136/73 12/21/22 08:00 Pulse Ox 95 12/21/22 08:00 O2 Del Method 12/21/22 08:00 O2 Flow Rate 2 12/21/22 03:49 BMI result Body Mass Index 30.8 On exam she is in good spirits She is anicteric She has no respiratory distress Expected abdominal tenderness is noted TIFFANIE has predominantly cirrhosis, slight sanguinous but non bilious drainage After removing the TIFFANIE from suction, the suture was cut and it was removed from the patient. 4 x 4 with tape was applied. Objective Data Active Medications Acetaminophen (Acetaminophen 325 Mg Tablet) 975 mg PO Q6H PRN PRN Reason: Pain, Mild (Pain Scale 1-3) Last Admin: 12/20/22 03:10 Dose: 975 mg Documented By: JOSE Hydromorphone HCl (Hydromorphone Hcl 0.5 Mg/0.5 Ml Syringe) 0.25 mg IVPUSH Q2H PRN; Protocol PRN Reason: Pain, Moderate (Pain Scale 4-6 Last Admin: 12/21/22 07:09 Dose: 0.25 mg Documented By: RYAN Lactated Ringer's (Lr) 1,000 mls @ 100 mls/hr IVCONT .Q10H [facility] Last Infusion: 12/21/22 08:32 Dose: 0 mls/hr Documented By: RYAN Piperacillin Sod/Tazobactam (Sod 3.375 gm/ Sodium Chloride) 50 mls @ 100 mls/hr IV Q6H [facility] Last Infusion: 12/21/22 04:12 Dose: 0 mls/hr Documented By: JOSE Ibuprofen (Ibuprofen 400 Mg Tablet) 400 mg PO Q6H PRN PRN Reason: Pain, Mild (Pain Scale 1-3) Last Admin: 12/19/22 15:14 Dose: 400 mg Documented By: JEANCARLOS Ondansetron HCl (Ondansetron Hcl 4 Mg/2 Ml Vial) 4 mg IVPUSH Q8H PRN PRN Reason: Nausea and Vomiting Pharmacy Consult (Consult Rx Perform Med Rec) 1 each MISCELLANE ONCE PRN PRN Reason: Consult order Sodium Chloride (0.9 % Sodium Chloride Flush 3 Ml Syringe) 3 ml IVFLUSH QSHIFT [facility] Last Admin: 12/21/22 06:56 Dose: Not Given Documented By: RYAN Non-Admin Reason: IV Running Labs 12/21/22 05:45 12/21/22 05:45 Labs: Laboratory Results - last 24 hr 12/21/22 12/21/22 05:45 05:45 MCV 84.5 MCH 26.6 L MCHC 31.5 RDW 15.0 Plt Count 358 MPV 10.8 Immature Gran % (Auto) 0.3 Neut % (Auto) 72.5 Lymph % (Auto) 16.0 L [place] % (Auto) 10.7 Eos % (Auto) 0.2 Baso % (Auto) 0.3 Lymph # (Auto) 2.0 [place] # (Auto) 1.4 H Eos # (Auto) 0.0 Baso # (Auto) 0.0 Abs Immat Gran (auto) 0.04 H Absolute Neuts (auto) 9.2 H Absolute Nucleated RBC 0.000 Nucleated RBC % (auto) 0.0 Anion Gap 13 Estim Creat Clear Calc 96.7 Estimated GFR > 60 Random Glucose 93 Calcium 8.4 Total Bilirubin 1.3 H AST 34 H ALT 45 H Alkaline Phosphatase 118 H Total Protein 6.1 L Albumin 3.6 Procedures Date of Service Date of Service: 12/21/22 Progress Note: A&P Assessment and plan (1) Acute gallstone pancreatitis: Status: Acute Plan Advanced to low-fat diet Instructions regarding diet and activity were reviewed and apparently understood. Patient is okay to shower tomorrow and should expect drainage from her TIFFANIE drain site Okay for discharge. Time Spent With Patient Time: Total time managing care of this patient today ____ minutes. Quality Stroke Does the patient have a stroke diagnosis?: No VTE Prior VTE?: No VTE Risk Level:: Surgical - moderate VTE Device Contraindication: N/A - Device Ordered VTE Drug Contraindication: Treatment Not Indicated
--- NOTE | 2022-12-21 09:18 | MHC.CM.PN ---
pt dcd home no skilled servcei ordered by
[2022-12-21] MEDS: Docusate Sodium 100 MG CAPSULE 200 MG PO (09:37)
[2022-12-21 12:03] VITALS: BP 119/59; PULSE 67; RESP 18; TEMP 36.7; O2SAT 94
[2022-12-21] MEDS: oxyCODONE HCl Immed Release 5 MG TABLET PO (13:30)
--- NOTE | 2022-12-21 13:44 | HO.POSTANES ---
Post Anesthesia Evaluation Post Anesthesia Evaluation Vital Signs: Vital Signs Temp Pulse Resp BP Pulse Ox O2 Del Method O2 Flow Rate 12/21/22 12:03 98.0 F 67 18 119/59 L 94 Room Air 12/21/22 08:00 97.9 F 77 18 136/73 95 Room Air 12/21/22 03:49 98 F 69 18 137/69 95 Nasal Cannula 2 Anesthesia: General Endotracheal-GETA Mental Status: Awake Pain Control: Satisfactory Nausea/Vomiting: None Hydration: Adequate Anesthesia-Related Issues: No Anes. Related Issues
--- NOTE | 2022-12-22 13:01 | P.DS_ITS ---
DS: Providers Provider Date of Service: 12/21/22 Date of admission: 12/19/22 03:55 Primary care physician: Unknown Physician Consults: 12/19/22 03:46 Consult to General Surgery Stat Consulting Provider: Paxton Healy Reason for consultation: Gall stone Has provider been notified: Yes DS: Diagnosis Discharge Diagnosis (1) Acute gallstone pancreatitis: Status: Acute DS: Summary Hospital Course Hospital Course: See admitting H and P for full details. Briefly, this 52-year-old woman presented to the emergency department with abdominal pain and was noted to have a leukocytosis, elevated lipase and gallstones. She was admitted, placed on bowel rest and, after her lipase and white blood cell count normalized, she underwent a laparoscopic cholecystectomy. She was kept in the hospital overni ght. The following day, her pain was better controlled, her diet advanced and her drain removed. Overall condition at time of discharge is improved. Time Spent with Patient Time attestation: Total time managing care of this patient today ____ minutes. Discharge coordination time: Less than 30 minutes Quality: Safe Use of Opioids Does Pt have an Active Cancer Diagnosis on the Problem List?: No Quality: Stroke Does the patient have a stroke diagnosis?: No Physical Exam Vital Signs: Vital Signs: Last Vital Signs Temp 98.0 F 12/21/22 12:03 Pulse 67 12/21/22 12:03 Resp 18 12/21/22 12:03 BP 119/59 L 12/21/22 12:03 Pulse Ox 94 12/21/22 12:03 O2 Del Method 12/21/22 12:03 O2 Flow Rate 2 12/21/22 03:49 BMI result Body Mass Index 30.8 DS: Data Data Completed and Pending Completed studies during hospitalization [Text1]: Pending at discharge 12/20/22 11:18 Surgical [PTH] Routine Discharge Plan Discharge Anticipated Discharge Date/Time: 12/21/22 08:59 Patient Disposition: Home, Self-Care Discharge Diagnosis: s/p lap nelda Referrals: Physician,Unknown J [Primary Care Provider] - 1 Week Paxton Healy MD [Physician] - 1 Week Discharge Medications: New oxycodone 5 mg tablet 5 mg PO Q4H PRN (Reason: pain) Qty: 20 0RF Rx Instructions: Partial Fill upon patient request. Continued albuterol sulfate [ProAir HFA] 90 mcg/actuation Hfa Aerosol Inhaler 2 puff INHALATION Q6H PRN (Reason: Shortness Of Breath Or Wheezing) melatonin [VitaJoy Melatonin] 2.5 mg tablet,chewable 10 mg PO BEDTIME budesonide-formoterol [Symbicort] 160-4.5 mcg/actuation HFA aerosol inhaler 2 inh inhalation BID cholecalciferol (vitamin D3) 50 mcg (2,000 unit) capsule 50 mcg PO DAILY levothyroxine 100 mcg tablet 100 mcg PO DAILY@0600 No Action amoxicillin-pot clavulanate 875-125 mg tablet 1 tab PO BID Qty: 10 0RF Discharge Orders: Discharge Order (Routine); Ordered 12/21/22 Ordered By: Paxton Healy Diet: Low fat Activity on Discharge: No heavy lifting Stand Alone Forms: Patient Portal Discharge page Activity Restrictions/Additional Instructions: You had a laparoscopic cholecystectomy performed by Dr. Healy. It is normal to experience some neck or shoulder pain from the gas used to inflate your abdomen. It is also normal to have pain or discomfort in your abdomen/belly as well as at the trocar sites (small incisions). This discomfort will resolve over the next 1-3 days, however, if it gets progressively worse, if you should develop worsening pain, nausea, vomiting and cannot keep liquids down, chest pain, difficulty breathing or shortness of breath, fevers over 100F please report to the nearest emergency department. Unless otherwise directed by Dr. Healy, you should resume taking your regular medications. You have been prescribed a 5 day course of antibiotic tablets. Take the antibiotic, Amoxicillin/Clavulanic acid, twice a day for 5 days. You do not need additional antibiotics when this is compelte. As Dr. Healy reviewed, you must not lift more than 20 lb for the next 4 weeks. Do not shovel snow or lift heavy bags. Strenuous activities can tear out your sutures and cause an incisional hernia that would require another operation. Activities to be avoided include: sports, running, bicycling, yoga, lifting more than 20 lb, digging, gardening, splitting/carrying wood, swimming, hiking uphill, and other activities. If you have questions regarding this specific activity, please check with Dr. Healy. If your incisions become red, swollen, tender or draining pus, please contact Dr. Healy or go to the nearest emergency department. Do not shower or bathe for 48 hours. If there are bandages on your incisions, remove them in 48 hours. Do not allow your bandages to become wet for 48 hours. Do not soak in a tub or swimming pool until your incisions have completely sealed, usually 2 or more weeks. After the dressings are removed in 48 hours, you will notice paper tapes called butterflies/Steri-Strips. These tapes will fall off on their own in 1-2 weeks. You do not need to apply another bandage unless your clothing irritates your incisions. If you need to place another Band-Aid on your incisions, be sure to wait until the Steri strip is dry. You have been prescribed narcotic pain medicine that will cause constipation. Please purchase kqic-cfo-rpiqkbi stool softener known as Colace/docusate, 100 mg. Take 2 tablets with breakfast and the morning and 2 tablets in the evening after dinner until your bowels are moving and urine or longer taking narcotics. Please note that if you are not taking narcotics, the general anesthesia for the procedure can still cause constipation. If you experience diarrhea, stop taking the stool softener medicine. You can take vzrc-pok-wulbvic Tylenol/acetaminophen with vkwj-tql-gkhcnkz ibuprofen or naproxen for pain unless you have an allergy or medical reason you are not not allowed to take these medications, such as peptic ulcers, taking blood thinners or kidney problems. You should also use ice packs to the operative site to help minimize pain and swelling for the first 3 days, or as needed afterwards. Unless there is a medical reason to avoid these medicines, you should take 2 ezhc-rle-zeduitg Tylenol with two (2) xyqe-dxx-eeiiapq ibuprofen together, every 6 hours for the first 3 days to help with pain. Remember that the gallbladder helps to to digest fatty foods. If you eat fried foods; rich, creamy sauces; cheese; gravies or other such heavy, greasy foods, you will likely develop gas and bloating and diarrhea. To minimize this risk, eat a high protein, high-fiber, low-fat diet for the next few weeks. Care Plan Goals: Allow adequate post-op healing Health Concerns: Allow adequate post-op healing Plan of Treatment: Allow adequate post-op healing Assessment: Gallstone pancreatitis, status post lap nelda Discharge Date/Time: 12/21/22 13:56
== END 2022-12-21 13:56 | disposition home or self-care (01) | DRG 263 ==
LOC: HO.ED 12-19 03:49 → HO.EDOVER 12-19 03:58 → HO.S3 12-19 05:52
PROVIDERS: Physician Assistant; Admitting Provider Surgery; Emergency Provider Student in an Organized Health Care Education/Training Program; Visit Provider Surgery
PROC: 0FT44ZZ Resection of Gallbladder, Percutaneous Endoscopic Approach (ICD-10-PCS; CPT 47562; principal; 2022-12-20 09:30)
DX: K85.10 Biliary acute pancreatitis without necrosis or infection (principal); E89.0 Postprocedural hypothyroidism; J45.909 Unspecified asthma, uncomplicated; Z20.822 Contact with and (suspected) exposure to COVID-19; Z79.890 Hormone replacement therapy; Z85.850 Personal history of malignant neoplasm of thyroid; Z79.899 Other long term (current) drug therapy
CPT/HCPCS: 36415; 74177; 80053; 81001; 81025; 83690; 85025; 85610; 85730; 86850; 86900; 86901; 87635; 88304; 93005; 99285; J0131; J1100; J1170; J2250; J2270; J2405; J2543; J2550; J2795; J3010; Q9967

== ENCOUNTER 2022-12-27 08:31 | Outpatient (REF) | payer MEDICAID, SELFPAY ==
[2022-12-27 09:21] LABS: MANUAL DIFF FLAG NO
[2022-12-27 09:59] LABS: Basophils Absolute Auto 0.1 X10*3/uL (0.0-0.2); Basophils Percent Auto 0.7 % (0-2); Eosinophils Absolute Auto 0.3 X10*3/uL (0.0-0.4); Eosinophils Percent Auto 3.6 % (0-4); Hematocrit 38.4 % (37.0-47.0); Imm Gran Abs Auto 0.02 X10*3/uL (0.00-0.03); Imm Gran Pct Auto 0.2 % (0.0-0.4); Lymphocytes Absolute Auto 2.3 X10*3/uL (1.2-4.9); Lymphocytes Percent Auto 25.7 % (20-40); Mean Corpuscular HGB Conc 31.3 g/dl (31.0-35.0); Mean Corpuscular Hemoglobin 26.8 pg (27.0-33.0); Mean Corpuscular Volume 85.7 fL (80.0-98.0); Mean Platelet Volume 10.9 fL (9.4-12.3); Monocytes Absolute Auto 0.6 X10*3/uL (0.1-1.2); Monocytes Percent Auto 7.2 % (2-11); Neutrophils Absolute Auto 5.6 x10*3/uL (2.0-8.3); Neutrophils Percent Auto 62.6 % (45-73); Platelet Count 449 X10*3/uL (160-400); Red Blood Count 4.48 X10*6/uL (4.20-5.50); Red Cell Distribution Width 14.4 % (11.0-16.0); White Blood Count 8.9 X10*3/uL (4.8-10.8)
[2022-12-27 11:37] LABS: Alanine Aminotransferase 26 U/L (0-31); Albumin Level 4.2 g/dL (3.5-5.0); Alkaline Phosphatase 154 U/L (39-117); Amylase 74 U/L (28-100); Anion Gap 16 (12-20); Aspartate Amino Transferase 17 U/L (5-31); Bilirubin Total 0.7 mg/dL (0.0-1.0); Blood Urea Nitrogen 7 mg/dL (9-16); Calcium 9.2 mg/dL (8.4-10.2); Carbon Dioxide 26 mmol/L (22-29); Chloride 102 mmol/L (96-108); Estimated Glomerular Filt Rate > 60; Glucose Random 85 mg/dL (60-115); Potassium 4.8 mmol/L (3.3-5.1); Sodium 139 mmol/L (135-145); Total Protein 7.4 g/dL (6.5-8.0)
== END 2022-12-27 08:32 | disposition home or self-care (01) ==
LOC: HO.LAB 08:31
PROVIDERS: PCP Internal Medicine; Visit Provider Surgery
DX: K85.10 Biliary acute pancreatitis without necrosis or infection (principal)
CPT/HCPCS: 36415; 80053; 82150; 85025

== ENCOUNTER → 2023-01-03 08:09 | Outpatient (BNVA) | payer MEDICAID, SELFPAY | PROVIDERS: PCP Internal Medicine; Visit Provider Surgery ==

== ENCOUNTER 2023-01-22 07:08 | Outpatient (REF) | payer MEDICAID, SELFPAY ==
--- NOTE | ~2023-01-22 | MM_ITS ---
EXAMINATION: MM SCREENING DIGITAL BREAST TOMOSYNTHESIS, BILATERAL CLINICAL INFORMATION: Screening. Asymptomatic. The lifetime risk of breast cancer based on the Tyrer-Cuzick Model is 8.5%. COMPARISON: Mammography: January 11, 2022 and studies dating back to September 01, 2016 TECHNIQUE: Digital breast tomosynthesis is performed in both the craniocaudal and mediolateral oblique views along with computer-aided detection (CAD). Synthesized 2D images are generated from the tomosynthesis. FINDINGS: There are scattered areas of fibroglandular density (ACR BI-RADS breast composition Category b). There are no significant masses, abnormal calcifications, or other abnormalities. MM/MM tomosynthesis screening BI IMPRESSION: No significant changes from prior exam. ASSESSMENT: BI-RADS 1: Negative RECOMMENDATION: Routine annual mammography screening. This patient's information was entered into a reminder system with a target due date for their next mammogram.
== END 2023-01-22 07:09 | disposition home or self-care (01) ==
LOC: HO.MAMMO 07:08
PROVIDERS: PCP Internal Medicine; Visit Provider Internal Medicine
DX: Z12.31 Encounter for screening mammogram for malignant neoplasm of breast (principal)
CPT/HCPCS: 77063; 77067

== ENCOUNTER 2023-05-17 05:17 | Emergency (ER) | payer MEDICAID, SELFPAY ==
--- NOTE | ~2023-05-17 | XR_ITS ---
EXAMINATION: XR SHOULDER, LEFT CLINICAL INFORMATION: Pain COMPARISON: None available. TECHNIQUE: 2 views frontal and scapular Y view of the left shoulder. FINDINGS: The bones and soft tissues are normal. No fracture. Glenohumeral and acromioclavicular alignment is anatomic with normal joint space. No abnormal soft tissue calcifications. XR/XR shoulder LT min 2V IMPRESSION: No fracture or dislocation.
[2023-05-17 05:19] VITALS: BP 136/77; PULSE 63; RESP 16; TEMP 36.7; O2SAT 99
--- NOTE | 2023-05-17 07:22 | ED_ITS ---
HPI - Extremity Problem General Chief complaint: Extremity Injury, Upper Stated complaint: Shoulder pain/No inj Time Seen by Provider: 05/17/23 06:54 Source: patient Mode of arrival: ambulatory Limitations: no limitations History of Present Illness HPI Narrative: Patient is a 52-year-old female with history of impingement syndrome of left shoulder, OA of left AC joint, left subacromial decompression and distal cl avicle excision with Dr. Toure in May of 2022 presenting to the emergency department with complaint of left shoulder pain as well as numbness and tingling to thumb and index finger of left hand for the past 2 weeks. Has been using Tylenol and ibuprofen with minimal relief. Has not called Orthopedics to discuss her symptoms. Denies recent falls or other trauma. MD Complaint: extremity pain Onset (ago): week(s) Pain Consistency: constant Location: left Quality: burning and aching Radiation: distal Relieving factors: nothing Associated symptoms: denies other symptoms Context: other (As per HPI) Related Data Home Medications Medication Instructions Recorded Confirmed albuterol sulfate 90 mcg/actuation 2 puff inhalation Q6H PRN 09/08/20 12/19/22 aerosol inhaler (ProAir HFA) Shortness Of Breath Or Wheezing budesonide-formoterol HFA 160 2 inh inhalation BID 11/05/21 12/19/22 mcg-4.5 mcg/actuation aerosol inhaler (Symbicort) cholecalciferol (vitamin D3) 50 50 mcg PO DAILY 11/05/21 12/19/22 mcg (2,000 unit) capsule levothyroxine 100 mcg tablet 100 mcg PO DAILY@0600 11/05/21 12/19/22 melatonin 2.5 mg chewable tablet 10 mg PO BEDTIME 12/19/22 12/19/22 (VitaJoy Melatonin) Previous Rx's Medication Instructions Recorded prednisone 20 mg tablet 40 mg PO DAILY #10 tabs 05/17/23 Allergies Allergy/AdvReac Type Severity Reaction Status Date / Time No Known Allergies Allergy Verified 12/27/22 08:44 [No Known Allergies*] Review of Systems Review of Systems: As per HPI. Yes all other systems are reviewed and are negative Constitutional: Constitutional: Reports as per HPI [facility] Past Medical History Medical History (Updated 05/17/23 @ 08:11 by Aundrea Marino NP) Asthma History of renal stone Hypothyroid Iron deficiency anemia Left shoulder pain Thyroid cancer Varicose vein of leg Surgical History (Updated 01/03/23 @ 09:02 by Paxton Healy MD) H/O colonoscopy History of lithotripsy Hx laparoscopic cholecystectomy Hx of shoulder surgery Hx of thyroidectomy Status post phlebectomy Social History Social History Household Members: Spouse Housing: House Alcohol intake: current Alcohol intake frequency: holidays/special occasions only Alcohol type: hard liquor Patient Tobacco Use Status: Never used Tobacco Advance Directives: No service: No Current occupational status: employed 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 Blood pressure normal. Heart rate normal. Respiratory rate normal. Temperature normal. Oxygen saturation normal. Const: General: cooperative, healthy appearing and no acute distress Orientation/consciousness: oriented to person, oriented to place, oriented to time and patient oriented x3 Limitations: no limitations HEENT: Head: Yes normocephalic and Yes atraumatic Ears: external ears normal General nose exam: Normal external nose present Face and sinus: Yes face symmetric Mouth: oropharynx normal and moist mucous membranes Throat: Yes uvula midline Eyes: Pupils: Equal, round and reactive pupils present Neck: Neck: Yes normal visual inspection and Yes supple Resp: Effort & Inspection: normal respiratory effort and able to speak in complete sentences Auscultation: clear to auscultation bilaterally Cardio: Rate: regular rate Rhythm: regular rhythm Heart sounds: S1 normal heart sound present and S2 normal heart sound present GI: Palpation (GI): Soft to palpation and nontender Auscultation: normoactive bowel sounds : General: Yes no CVA tenderness Back/Spine/Pelvis: Back: no CVA tenderness Skin: General skin exam: elasticity normal and turgor normal Neuro: General: oriented to person, oriented to place, oriented to time, patient oriented x3, moves all extremities, no focal motor deficits and CN's II- XI intact bilaterally Cranial nerves: Yes Equal, round and reactive pupils present Cognition (Neuro): normal cognition Extrem: General: Yes full ROM, Yes no pedal edema and Yes no calf tenderness Left upper extremity: normal to inspection, shoulder/upper arm Details: abnormal ROM Details: pain with active ROM Details: in ADduction and with range as follows (decreased ROM with abduction, forward flexion, external rotation) and hand Details: normal to inspection, normal capillary refill, neuromotor exam normal, vascular exam Details: radial pulse present and normal ROM of fingers Psych: Mental Status: mental status grossly normal Affect: normal affect Thought process: Normal thought process present Medical Decision Making Medical Decision Making MDM Narrative: Patient is a 52-year-old female with history of impingement syndrome of left shoulder, OA of left AC joint, left subacromial decompression and distal clavicle excision with Dr. Toure in May of 2022 presenting to the emergency department with complaint of left shoulder pain as well as numbness and tingling to thumb and index finger of left hand for the past 2 weeks. On exam patient is awake, A+Ox3, VS WNL, afebrile, normal neurological exam without focal deficits, limited ROM with abduction, forward flexion, external rotation and increased pain with ROM, neurovascularly intact distal. Given reported symptoms and p hysical exam findings, initial differential includes acute exacerbation of impingement syndrome, strain, sprain. X-ray notable for no acute abnormalities. My interpretation is in agreement with the radiologist's interpretation. Unlikely fracture or dislocation as patient denies fall or other trauma. Feel symptoms are likely related to patient's impingement syndrome, will prescribe short course of prednisone and refer patient to follow up with ortho. Return precautions discussed, patient verbalized understanding of and agreement with plan. Differential Diagnosis Differential Diagnoses: The differential diagnosis associated with the presentation includes As per MDM. Independent Interpretation I performed an independent interpretation of an: Plain X-Ray Interpretation: Normal left shoulder. Radiology Impression Discussion of test interpretation with radiology: I have reviewed the radiologist's reading. Radiologist Impression: FINDINGS: The bones and soft tissues are normal. No fracture. Glenohumeral and acromioclavicular alignment is anatomic with normal joint space. No abnormal soft tissue calcifications.? XR/XR shoulder LT min 2V IMPRESSION: No fracture or dislocation. External Record Review External record reviewed: Inpatient record, Office record and Outpatient record Prescription Management I considered prescription management with: Other (Prednisone) Discharge Plan Discharge Clinical Impression: Impingement syndrome, shoulder, left Patient Disposition: Home, Self-Care Instructions: Shoulder Impingement Syndrome (ED) Additional Instructions: You have been evaluated in the emergency department today for left shoulder pain. Your evaluation did not find evidence of medical conditions requiring emergent intervention at this time. Please rest and ice your shoulder, and resume normal activities as tolerated. You are being prescribed a short course of steroids, called prednisone. DO NOT TAKE ANY NSAIDS (IBUPROFEN, NAPROXEN) WHILE TAKING THE PREDNISONE. YOU MAY RESUME USE OF NSAIDS AFTER YOU HAVE COMPLETED THE PREDNISONE. We recommend you take 600mg ibuprofen every 6 hours or 650mg Tylenol every 6 hours as needed for pain. If needed you can alternate these medications as they take 1 medication every 3 hours. For instance at noon take ibuprofen, then at 3:00 p.m. take Tylenol, then at 6:00 p.m. take ibuprofen. Please schedule an appointment for follow-up with ORTHOPEDICS this week. Return to the emergency department if you experience worsening pain, numb ness, tingling, change of color in your ARM, or any other concerning symptoms. Prescriptions: New prednisone 20 mg tablet 40 mg PO DAILY Qty: 10 0RF No Action albuterol sulfate [ProAir HFA] 90 mcg/actuation Hfa Aerosol Inhaler 2 puff INHALATION Q6H PRN (Reason: Shortness Of Breath Or Wheezing) melatonin [VitaJoy Melatonin] 2.5 mg tablet,chewable 10 mg PO BEDTIME budesonide-formoterol [Symbicort] 160-4.5 mcg/actuation HFA aerosol inhaler 2 inh inhalation BID cholecalciferol (vitamin D3) 50 mcg (2,000 unit) capsule 50 mcg PO DAILY levothyroxine 100 mcg tablet 100 mcg PO DAILY@0600 Referrals: [facility] [place] Orthopedic Surgeons [Provider Group] Stand Alone Forms: Work/School Release
== END 2023-05-17 08:33 | disposition home or self-care (01) ==
PROVIDERS: Emergency Provider Emergency Medicine; PCP Internal Medicine
DX: M75.42 Impingement syndrome of left shoulder (principal)
CPT/HCPCS: 73030; 99282; 99283

== ENCOUNTER 2023-05-18 06:47 | Outpatient (REF) | payer MEDICAID, SELFPAY ==
[2023-05-18 10:49] LABS: Alanine Aminotransferase 22 U/L (0-31); Albumin Level 4.3 g/dL (3.5-5.0); Alkaline Phosphatase 89 U/L (39-117); Anion Gap 13 (12-20); Aspartate Amino Transferase 19 U/L (5-31); Bilirubin Total 0.8 mg/dL (0.0-1.0); Blood Urea Nitrogen 11 mg/dL (9-16); Calcium 9.8 mg/dL (8.4-10.2); Carbon Dioxide 27 mmol/L (22-29); Chloride 105 mmol/L (96-108); Estimated Glomerular Filt Rate > 60; Glucose Random 98 mg/dL (60-115); Potassium 3.6 mmol/L (3.3-5.1); Sodium 141 mmol/L (135-145); Total Protein 7.9 g/dL (6.5-8.0)
[2023-05-18 11:02] LABS: Hepatitis A Antibody IgM 0.27 Index (0-0.79); Hepatitis B Core Antibody Nonreactive (Nonreactive); Hepatitis B Surface Antigen Negative (Negative); ~HepC Num1 0.09 S/CO (0.00-0.79); ~Hepatitis A Antibody IgM Nonreactive (Nonreactive); ~Hepatitis B Surface Antibody NONREACTIVE (Nonreactive); ~Hepatitis C Antibody Nonreactive (Nonreactive)
== END 2023-05-18 06:48 | disposition home or self-care (01) ==
LOC: HO.LAB 06:47
PROVIDERS: PCP Internal Medicine; Visit Provider Internal Medicine
DX: E89.0 Postprocedural hypothyroidism (principal); R74.01 Elevation of levels of liver transaminase levels; Z63.4 Disappearance and death of family member
CPT/HCPCS: 36415; 80053; 84443; 86704; 86706; 86709; 86803; 87340

== ENCOUNTER 2023-05-27 08:08 | Outpatient (REF) | payer MEDICAID, SELFPAY ==
--- NOTE | 2023-05-27 08:12 | EMG_ITS ---
Please see EMG / Nerve Conduction Report. MTDD
--- NOTE | 2023-05-27 09:51 | P.EMGPH_ITS ---
Physiatry - EMG/NCS EMG/NCS Chief complaint: Left hand numbness Reason for referral: Evaluate for Carpal Tunnel Syndrome versus radiculopathy Referred by: Dr. Barnett Procedure done: Left upper extremity NCS/EMG Precautions and/or limitations: None The limb temperature was monitored continuously and remained between 32-36 degrees C during the performance of the NCS. FINDINGS: Left median motor nerve showed prolonged distal latency, normal amplitude and normal conduction velocity. Left median sensory nerve showed prolonged peak latency. All other nerves tested were within normal. Concentric needle EMG was performed in selected muscles of the left upper extremity. Study did not reveal signs of electric abnormalities as shown in the table below. Nerve Conduction Studies Anti Sensory Summary Table ?Stim Site NR Onset (ms) Norm Onset (ms) Peak (ms) Norm Peak (ms) O-P Amp (?V) Norm O-P Amp Site1 Site2 Delta-0 (ms) Dist (cm) Dante (m/s) Norm Dante (m/s) Left Median Anti Sensory (2nd Digit) Wrist ? 3.9 4.7 <3.6 22.1 >10 Wrist 2nd Digit 3.9 14.0 36 Left Radial Anti Sensory (Thumb) Forearm ? 1.7 2.0 <3.1 0.2 Forearm Thumb 1.7 0.0 Left Ulnar Anti Sensory (5th Digit) Wrist ? 2.4 3.4 <3.7 41.6 >15.0 Wrist 5th Digit 2.4 14.0 58 Motor Summary Table ?Stim Site NR Onset (ms) Norm Onset (ms) O-P Amp (mV) Norm O-P Amp iAmp (mV) Amp (1st) (%) Site1 Site2 Delta-0 (ms) A Dist (cm) Dante (m/s) Norm Dante (m/s) Left Median Motor (Abd Poll Brev) Wrist ? 4.9 <3.9 10.3 >4.5 13.5 100.0 Elbow Wrist 3.7 21.0 57 >45 Elbow ? 8.6 10.1 13.4 98.1 Left Ulnar Motor (Abd Dig Minimi) Wrist ? 2.7 <3.0 9.1 >5 11.2 100.0 B Elbow Wrist 3.2 19.0 59 >45 B Elbow ? 5.9 8.7 10.6 95.6 A Elbow B Elbow 1.3 10.0 77 >45 A Elbow ? 7.2 9.4 11.6 103.3 EMG ?Side Muscle Nerve Root Ins Act Fibs Psw Amp Dur Poly Recrt Int Pat Comment Left 1stDorInt Ulnar C8-T1 Nml Nml Nml Nml Nml 0 Nml Complete Left FlexCarRad Median C6-7 Nml Nml Nml Nml Nml 0 Nml Complete Left Biceps Musculocut C5-6 Nml Nml Nml Nml Nml 0 Nml Complete Left Triceps Radial C6-7-8 Nml Nml Nml Nml Nml 0 Nml Co mplete Left Deltoid Axillary C5-6 Nml Nml Nml Nml Nml 0 Nml Complete IMPRESSION: 1. This is an abnormal study. 2. There is electrodiagnostic evidence for left moderate-severe median neuropathy at the wrist, consistent with Carpal Tunnel Syndrome. 3. There is no electrodiagnostic evidence for ulnar neuropathy, brachial plexopathy, or cervical radiculopathy. Thank you for your kind referral. Kathy Zapata MD, JACLYN Board Certified, [place] Board [employer] Physical [employer] and Rehabilitation (ABPMR) Board Certified, [place] Board of Electrodiagnostic Medicine (ABEM)
== END 2023-05-27 08:09 | disposition home or self-care (01) ==
LOC: HO.NEURO 08:08
PROVIDERS: Visit Provider Internal Medicine
DX: M54.12 Radiculopathy, cervical region (principal)
CPT/HCPCS: 95860; 95886; 95907; 95909

== ENCOUNTER → 2023-05-27 08:08 | Outpatient (BNV) | payer MEDICAID, SELFPAY | PROVIDERS: Visit Provider Physical Medicine & Rehabilitation | DX: G56.12 Other lesions of median nerve, left upper limb (principal); G56.02 Carpal tunnel syndrome, left upper limb | CPT/HCPCS: 95886; 95909 ==

== ENCOUNTER 2023-06-09 08:48 | Outpatient (AMB) | payer MEDICAID, SELFPAY ==
--- NOTE | 2023-06-09 08:50 | MHC.OFFVIS ---
Intake Vital Signs 06/09/23 08:54 Height 5 ft 7 in Weight 212 lb BMI 33.2 Handedness Right Intake Visit Reasons: Ov- Impingement syndrome, shoulder, left Intake Note: Penny is a 52 year old right hand dominant female who presents today for a follow up appointment s/p Left Shoulder 05/12/22 NE. Patient reports that she had to go the ED for her left shoulder pain which radiates up to her neck and down to her arm. She states that she was told that her pain is coming from her recent diagnosis of left CTS. Allergies No Known Allergies [No Known Allergies*] Allergy (Verified 06/09/23 08:53) HPI Ov- Impingement syndrome, shoulder, left HPI Details 53-year-old right hand dominant female who presents in the office today for a follow up of left shoulder pain. The patient claims her left shoulder pain radiates up her neck and down her arm. She states she was told her pain is from her recent diagnosis of carpal tunnel syndrome. She reports numbness and tingling in the left thumb, index, and middle digits. PFSH Medical History (Updated 06/09/23 @ 09:52 by Jennifer Hurst) Asthma History of renal stone Hypothyroid Iron deficiency anemia Left shoulder pain Thyroid cancer Varicose vein of leg Surgical History (Updated 01/03/23 @ 09:02 by Paxton Healy MD) H/O colonoscopy History of lithotripsy Hx laparoscopic cholecystectomy Hx of shoulder surgery Hx of thyroidectomy Status post phlebectomy Social History Household Members: Spouse Housing: House Alcohol intake: current Alcohol intake frequency: holidays/special occasions only Alcohol type: hard liquor Patient Tobacco Use Status: Never used Tobacco service: No Current occupational status: employed 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 No ecchymosis, erythema, or edema. Able to perform full finger flexion, extension, abduction, adduction, finger cross, okay sign, and thumbs up without deficit. Able to make a closed fist. Positive Tinel?s at the left carpal tunnel. Numbness and tingling in the left thumb, index, and middle digits.. Capillary refill is brisk. Radial pulse intact. Assessment & Plan Assessment & Plan (1) Left carpal tunnel syndrome: Code(s): G56.02 - Carpal tunnel syndrome, left upper limb Plan Ms. Birmingham is a 53-year-old right hand dominant female who presents in the office today for a follow up of left shoulder pain. The patient claims her left shoulder pain radiates up her neck and down her arm. She states she was told her pain is from her recent diagnosis of carpal tunnel syndrome. She reports numbness and tingling in the left thumb, index, and middle digits. The patient was given a velcro wrist splint, off the shelf, while in the office today. She has an appointment scheduled with Dr. Chauhan in 07/2023. She would like to meet the surgeon to discuss surgery prior to booking. Follow up will be with Dr. Chauhan in 07/2023, or sooner if needed. EMG of the left upper extremity, obtained on 05/27/2023, revealed: 1. Left median motor nerve showed prolonged distal latency, normal amplitude and normal conduction velocity. 2. Left median sensory nerve showed prolonged peak latency. 3. All other nerves tested were within normal. Patient Instructions: Scribed for Bettina Whitehead PA-C by Jennifer Hurst medical diagnostic radiographer, on 06/09/2023 at 8:51 am, EST. Coding Level of Care Code Est Pt Level 3 (97340) Diagnoses Left carpal tunnel syndrome G56.02
[2023-06-09 08:54] VITALS: BMI 33.2
== END 2023-06-09 09:27 | disposition home or self-care (01) ==
PROVIDERS: PCP Internal Medicine; Visit Provider Physician Assistant
DX: G56.02 Carpal tunnel syndrome, left upper limb (principal)

== ENCOUNTER → 2023-06-09 08:48 | Outpatient (BNVA) | payer MEDICAID, SELFPAY | PROVIDERS: PCP Internal Medicine; Visit Provider Physician Assistant | DX: M25.512 Pain in left shoulder (principal); G56.02 Carpal tunnel syndrome, left upper limb | CPT/HCPCS: 99212; 99213 ==

== ENCOUNTER 2024-01-28 07:19 | Outpatient (REF) | payer BC, SELFPAY | END 2024-01-28 07:20 | disposition home or self-care (01) | LOC: HO.MAMMO 07:19 | PROVIDERS: PCP Internal Medicine; Visit Provider Internal Medicine | DX: Z12.31 Encounter for screening mammogram for malignant neoplasm of breast (principal) | CPT/HCPCS: 77063; 77067 ==

== ENCOUNTER → 2024-01-28 07:30 | Outpatient (BNV) | payer BC, SELFPAY | PROVIDERS: PCP Internal Medicine; Visit Provider Radiology Diagnostic Radiology | DX: Z12.31 Encounter for screening mammogram for malignant neoplasm of breast (principal) | CPT/HCPCS: 77063; 77067 ==

== ENCOUNTER 2024-02-17 08:03 | Outpatient (AMB) | payer BC, SELFPAY ==
--- NOTE | 2024-02-17 08:29 | MHC.OFFVIS ---
Intake Visit Reasons: OV - left shoulder pain Intake Note: Penny is a 53 year old right hand dominant female who presents today for a follow up of her Left Shoulder 05/12/22 NE. Patient reports when she is doing her at home exercises she finds that it doesn't give her relief. She expresses that she is still having constant in her whole arm. Allergies No Known Allergies [No Known Allergies*] Allergy (Verified 02/17/24 08:37) HPI HPI OV - left shoulder pain: Details: 53-year-old right hand dominant female who presents in the office today for a follow up of left shoulder pain. I last saw the patient in the office for her left wrist on 06/09/2024 when she was placed in a Velcor wrist splint and scheduled to see Dr. Chauhan. While in the office today the patient reports she is working on her home exercise program but feels this is not giving her relief. She claims she continues to have constant pain in the entire left upper extremity. Patient has a surgical history of a left shoulder arthroscopy on 05/12/[address] Toure[address] [facility] Medical History (Updated 06/09/23 @ 09:52 by Jennifer Hurst) Varicose vein of leg Hypothyroid Left shoulder pain History of renal stone Thyroid cancer Asthma Iron deficiency anemia Surgical History (Updated 01/03/23 @ 09:02 by Paxton Healy MD, FACS, [facility]) Hx laparoscopic cholecystectomy Hx of shoulder surgery Status post phlebectomy H/O colonoscopy History of lithotripsy Hx of thyroidectomy Social History Household Members: Spouse Housing: House Alcohol intake: current Alcohol intake frequency: holidays/special occasions only Alcohol type: hard liquor Patient Tobacco Use Status: Never used Tobacco service: No Current occupational status: employed 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 No ecchymosis, erythema, or edema. Able to perform full finger flexion, extension, abduction, adduction, finger cross, okay sign, and thumbs up without deficit. Able to make a closed fist. Positive Tinel?s at the left carpal tunnel. Numbness and tingling in the left thumb, index, and middle digits. Capillary refill is brisk. Radial pulse intact. Assessment & Plan Assessment & Plan (1) Left carpal tunnel syndrome: Code(s): G56.02 - Carpal tunnel syndrome, left upper limb Category: Medical Plan Ms. Birmingham is a 53-year-old right hand dominant female who presents in the office today for a follow up of left shoulder pain. I last saw the patient in the office for her left wrist on 06/09/2024 when she was placed in a Velcor wrist splint and scheduled to see Dr. Chauhan. While in the office today the patient reports she is working on her home exercise program but feels this is not giving her relief. She claims she continues to have constant pain in the entire left upper extremity. Patient has a surgical history of a left shoulder arthroscopy on 05/12/[address] Toure. Patient would like to be further evaluated by Dr. Chauhan and to discuss further treatment options. An appointment with Dr. Chauhan was made today. Follow up will be with Dr. Chauhan, or sooner if needed. Patient Instructions: Scribed by Jennifer Hurst medical advisor, for Bettina Whitehead PA-C on 02/17/2024 at 8:36 am, EST. Coding Level of Care Code Est Pt Level 3 (47412) Diagnoses Left carpal tunnel syndrome G56.02
== END 2024-02-17 08:42 | disposition home or self-care (01) ==
PROVIDERS: PCP Internal Medicine; Visit Provider Physician Assistant
DX: G56.02 Carpal tunnel syndrome, left upper limb (principal)
CPT/HCPCS: 99213

== ENCOUNTER → 2024-02-17 08:03 | Outpatient (BNVA) | payer BC, SELFPAY | PROVIDERS: PCP Internal Medicine; Visit Provider Physician Assistant ==

== ENCOUNTER 2024-03-14 08:13 | Outpatient (AMB) | payer BC, SELFPAY ==
--- NOTE | 2024-03-14 08:14 | A.OFFVIS_ITS ---
Vital Signs 03/14/24 08:31 Height 5 ft 7 in Weight 212 lb BMI 33.2 Intake Visit Reasons: OV- Left hand pain Intake Note: Penny 53 yr old right hand dominant female presents today for a follow up visit for her Left carpal tunnel syndrome . Last seen with Stan Dunbar who wanted patient to be further evaluated by Dr. Chauhan. EMG done. She is looking to proceed with surgery. Allergies No Known Allergies [No Known Allergies*] Allergy (Verified 02/17/24 08:37) HPI HPI OV- Left hand pain: Details: Penny is a 53 year old right hand dominant woman who presents for a NCS review of her left hand numbness. She complains of numbness primarily in the left index, and middle fingers, with better sensation to the thumb. Symptoms intermittent, but daily, worse at night. She found limited relief from wearing a wrist splint at night. She denies any numbness in her right hand, and denies any left small finger numbness. She had questions about remaining out of work. 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 She is unsure if her work has light duty to accomodate her. [facility] Medical History (Updated 06/09/23 @ 09:52 by Jennifer Hurst) Varicose vein of leg Hypothyroid Left shoulder pain History of renal stone Thyroid cancer Asthma Iron deficiency anemia Surgical History (Updated 01/03/23 @ 09:02 by Paxton Healy MD, FACS, [facility]) Hx laparoscopic cholecystectomy Hx of shoulder surgery Status post phlebectomy H/O colonoscopy History of lithotripsy Hx of thyroidectomy Social History Household Members: Spouse Housing: House Alcohol intake: current Alcohol intake frequency: holidays/special occasions only Alcohol type: hard liquor Patient Tobacco Use Status: Never used Tobacco service: No Current occupational status: employed 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 Review of Systems Const All systems reviewed & are unremarkable except as noted in HPI and below Physical Exam Vital Signs: BMI result Body Mass Index 33.2 Const General: cooperative, healthy appearing and no acute distress Orientation/consciousness: patient oriented x3 HEENT Head: Yes normocephalic and Yes atraumatic Eyes EOM: EOMs intact bilaterally Resp Effort & Inspection: normal respiratory effort and able to speak in complete sentences Cardio Jugular venous distension: no JVD Skin General skin exam: turgor normal Rashes: no rashes Neuro General: patient oriented x3 Extrem Other: Evaluation of Left Upper Extremity: The patient is alert, oriented, and in no acute distress Neuro: Mildly decreased subjective sensation to the index & middle fingers. Normal sensation to the tips of all other digits. No thenar or intrinsic wasting Good APB muscle belly firing and good finger cross Vascular: Cap refill brisk ROM: She can make a fist and extend all her digits No locking or catching Skin: No lacerations or abrasions. General: No Ecchymosis. No Erythema or evidence of infection. Radiographs: 3 views of the left hand were taken and viewed by me today in clinic. They show no fractures or dislocations. Nerve Conduction study Left-side only IMPRESSION: 1. This is an abnormal study. 2. There is electrodiagnostic evidence for left moderate-severe median neuropathy at the wrist, consistent with Carpal Tunnel Syndrome. 3. There is no electrodiagnostic evidence for ulnar neuropathy, brachial plexopathy, or cervical radiculopathy. Kathy Zapata MD, JACLYN 05/27/23 Psych Appearance: grossly normal Affect: normal affect Attitude: cooperative Assessment & Plan Assessment & Plan (1) Left carpal tunnel syndrome: Code(s): G56.02 - Carpal tunnel syndrome, left upper limb Category: Medical Plan Assessment & Plan: 1. Left carpal tunnel syndrome, moderate-severe Symptoms intermittent, but daily, worse at night Some persistent decreased sensation to the index and middle fingers I educated her about this condition I discussed operative and non-operative treatment options The patient would like to proceed with surgery The risks and benefits of operative treatment were discussed with the patient and the patient wishes to proceed with surgery. These risks include, but are not limited to risk of damage to blood vessels, nerves, tendons, infection, recurrence, incomplete relief of preoperative symptoms, persistent pain, possible need for further surgery and the risks associated with regional blocks and anesthesia. The plan is to take the patient to the operating room sometime in the next few weeks for the following procedures: 1. Left carpal tunnel release, under local All of the preoperative paperwork including the consent was reviewed today. All the patient's questions were answered. The patient understands that they will be contacted by our assistant casino shift manager soon to schedule this procedure She denies Diabetes, blood thinners, asthma, heart, lung, kidney issues Scribed for Nicci Chauhan MD by Dustin Dunn, medical assistant cardiology, on 03/14/24 at 8:45 AM, EST. Orders: Orders XR hand LT min 3V Today M79.642 - Pain in left hand Coding Level of Care Code Est Pt Level 4 (68200) Diagnoses Left carpal tunnel syndrome G56.02
[2024-03-14 08:31] VITALS: BMI 33.2
== END 2024-03-14 08:49 | disposition home or self-care (01) ==
PROVIDERS: PCP Internal Medicine; Visit Provider Orthopaedic Surgery
DX: G56.02 Carpal tunnel syndrome, left upper limb (principal)
CPT/HCPCS: 99214

== ENCOUNTER 2024-03-14 09:14 | Outpatient (REF) | payer BC, SELFPAY ==
--- NOTE | ~2024-03-14 | XR_ITS ---
EXAMINATION: XR HAND, LEFT CLINICAL INFORMATION: Left hand pain COMPARISON: None available. TECHNIQUE: PA, lateral, and oblique views of the left hand. FINDINGS: The bones and soft tissues are normal. No fracture. Alignment is anatomic. Joint spaces are maintained. No erosions or soft tissue calcifications. XR/XR hand LT min 3V IMPRESSION: Normal left hand.
== END 2024-03-14 09:15 | disposition home or self-care (01) ==
LOC: HO.HOSX 09:14
PROVIDERS: Visit Provider Orthopaedic Surgery
DX: M79.642 Pain in left hand (principal)
CPT/HCPCS: 73130

== ENCOUNTER 2024-05-24 06:20 | Outpatient (REF) | payer BC, SELFPAY ==
[2024-05-24 06:40] LABS: MANUAL DIFF FLAG NO
[2024-05-24 07:10] LABS: Basophils Absolute Auto 0.1 X10*3/uL (0.0-0.2); Basophils Percent Auto 0.9 % (0-2); Eosinophils Absolute Auto 0.3 X10*3/uL (0.0-0.4); Eosinophils Percent Auto 3.5 % (0-4); Hematocrit 36.6 % (37.0-47.0); Hemoglobin 12.1 g/dl (12.0-16.0); Imm Gran Abs Auto 0.02 X10*3/uL (0.00-0.03); Imm Gran Pct Auto 0.2 % (0.0-0.4); Lymphocytes Absolute Auto 2.5 X10*3/uL (1.2-4.9); Mean Corpuscular HGB Conc 33.1 g/dl (31.0-35.0); Mean Corpuscular Hemoglobin 27.8 pg (27.0-33.0); Mean Corpuscular Volume 83.9 fL (80.0-98.0); Mean Platelet Volume 10.3 fL (9.4-12.3); Monocytes Absolute Auto 0.6 X10*3/uL (0.1-1.2); Monocytes Percent Auto 7.7 % (2-11); Neutrophils Absolute Auto 4.7 x10*3/uL (2.0-8.3); Neutrophils Percent Auto 56.7 % (45-73); Platelet Count 347 X10*3/uL (160-400); Red Blood Count 4.36 X10*6/uL (4.20-5.50); Red Cell Distribution Width 15.1 % (11.0-16.0); White Blood Count 8.2 X10*3/uL (4.8-10.8)
[2024-05-24 07:48] LABS: Alanine Aminotransferase 16 U/L (0-31); Albumin Level 4.4 g/dL (3.5-5.0); Alkaline Phosphatase 82 U/L (39-117); Anion Gap 10 (12-20); Aspartate Amino Transferase 20 U/L (5-31); Bilirubin Total 0.7 mg/dL (0.0-1.0); Blood Urea Nitrogen 12 mg/dL (9-16); Calcium 9.4 mg/dL (8.4-10.2); Carbon Dioxide 28 mmol/L (22-29); Chloride 105 mmol/L (96-108); Cholesterol 221 mg/dL (<200); Estimated Glomerular Filt Rate > 60; Glucose Random 94 mg/dL (60-115); HDL Cholesterol 57 mg/dL (>40); LDL Cholesterol Calculated 144 mg/dL (<100); Potassium 4.2 mmol/L (3.3-5.1); Sodium 139 mmol/L (135-145); Total Protein 7.6 g/dL (6.5-8.0); Triglycerides 100 mg/dL (<150)
[2024-05-24 08:03] LABS: Thyroid Stimulating Hormone 2.91 uIU/mL (0.32-4.0)
== END 2024-05-24 06:21 | disposition home or self-care (01) ==
LOC: HO.LAB 06:20
PROVIDERS: PCP Internal Medicine; Visit Provider Internal Medicine
DX: C73 Malignant neoplasm of thyroid gland (principal); D50.9 Iron deficiency anemia, unspecified; M17.12 Unilateral primary osteoarthritis, left knee; M70.62 Trochanteric bursitis, left hip
CPT/HCPCS: 36415; 80053; 80061; 84443; 85025

== ENCOUNTER 2024-05-24 06:42 | Day surgery (SDC) | payer BC, SELFPAY ==
[2024-05-24 07:01] VITALS: BMI 34.5
[2024-05-24 07:09] VITALS: BP 119/54; PULSE 63; RESP 16; TEMP 36.1; O2SAT 99
--- NOTE | 2024-05-24 07:58 | MHC.SHP ---
Pre-Procedural Eval Section A - 24 Hr Update-Section A only Date of Service: 05/24/24 The patient is an INPATIENT: No Changes since office visit: No Cold of Flu in the past 2 weeks, No New Medical Problems, No Changes in Medication and No Patient answered all questions The patient has been examined within 24 hours of the surgical procedure. The History & Physical has been completed within 30 days and I have reviewed it.: Yes Section B - Complete if H&P > 30 days Chief Complaint: Carpal tunnel syndrome, left upper limb Allergies: Allergies Allergy/AdvReac Type Severity Reaction Status Date / Time No Known Allergies Allergy Verified 02/17/24 08:37 [No Known Allergies*] Plan Diagnosis/Plan: Unchanged I have reviewed the history and physical and performed a pertinent physical examination on my patient. No changes have occurred unless specified. Time Spent With Patient Time: Total time managing care of this patient today ____ minutes.
--- NOTE | 2024-05-24 08:00 | P.OP_ITS ---
Operative Note Operative Note Date of Service: 05/24/24 Narrative: Preop diagnosis: 1. Left Carpal tunnel syndrome Postop diagnosis: same Procedure: 1. Left Carpal tunnel release Surgeon: Nicci Chauhan MD Supervisor Customer Services: [place] Anesthesia: local block using 1% lidocaine with epinephrine Findings: Thickened transverse carpal ligament. EBL: Less than 5 mL Specimens: None Complications: None Disposition: Brought to recovery room in stable condition Plan: Follow-up for 10-14 days for wound check and suture removal Indications: The patient is 53 years old, with left carpal tunnel syndrome that has been unresponsive to nonoperative management. The risks and benefits of operative treatment including but not limited to risk of damage to blood vessels, nerves, tendons, infection, persistent pain, persistent symptoms, or possible need for additional surgery were discussed with the patient and the patient wishes to proceed with surgery. Procedure: Once consent was obtained a local block was performed using a combination of 1% lidocaine with epinephrine. The patient was then brought back to the operating suite and placed on the operative table in supine position. The left upper extremity was prepped and draped in a standard surgical fashion. Once assured that we had a good block, a 2.0 cm longitudinal incision was made centered over the carpal tunnel. The incision was made through the skin to the subcutaneous tissues using a #15 blade. Dissection was made down to the level of the transverse carpal ligament with care being taken to protect the palmar cutaneous nerve. Once the transverse carpal ligament was clearly visualized, a longitudinal incision was made in the transverse carpal ligament 1st using a #15 blade, then using tenotomy scissors under direct visualization. Care was taken to look for and protect the motor branch of the median nerve when seen in this area. Once satisfied with our carpal tunnel release the wound was copiously irrigated with normal saline and hemostasis was obtained with a brief period of local pressure. The skin edges were reapproximated with some 5.0 nylon suture material and a sterile dressing was applied. The patient appears to have tolerated the procedure well and with no complications. All digits were well vascularized at the conclusion of the case.
[2024-05-24 10:06] VITALS: BP 135/77; PULSE 69; RESP 16; O2SAT 97
== END 2024-05-24 10:09 | disposition home or self-care (01) ==
PROVIDERS: PCP Internal Medicine; Visit Provider Orthopaedic Surgery
PROC: (CPT 64721; principal; 2024-05-24 08:10)
DX: G56.02 Carpal tunnel syndrome, left upper limb (principal); J45.909 Unspecified asthma, uncomplicated; D50.9 Iron deficiency anemia, unspecified; Z85.850 Personal history of malignant neoplasm of thyroid
CPT/HCPCS: 64721; J0171

== ENCOUNTER → 2024-05-24 06:42 | Outpatient (BNV) | payer BC, SELFPAY | PROVIDERS: PCP Internal Medicine; Visit Provider Orthopaedic Surgery | DX: G56.02 Carpal tunnel syndrome, left upper limb (principal) | CPT/HCPCS: 64721 ==

== ENCOUNTER 2024-06-06 12:06 | Outpatient (AMB) | payer BC, SELFPAY ==
[2024-06-06 12:13] VITALS: BMI 34.5
--- NOTE | 2024-06-06 12:13 | MHC.OFFVIS ---
Vital Signs 06/06/24 12:13 Height 5 ft 7 in Weight 220 lb BMI 34.5 Intake Visit Reasons: PO LT CTR 05/24/24 AR Intake Note: Penny is a 54yo right hand dominant female who presents today post-operatively s/p left carpal tunnel release done 05/24/[address] Chauhan. Patient denies numbness and tingling. Denies locking on fingers. Patient is not taking anything for pain at this time. Stitches removed in office and steri strips applied. Allergies No Known Allergies [No Known Allergies*] Allergy (Verified 06/06/24 12:14) HPI HPI PO LT CTR 05/24/24 AR: Details: Penny is a 54 year old right hand dominant woman who returns S/P left carpal tunnel release, DOS: 05/24/24. She says she is doing well and her sensation is now normal. She denies any pain and is happy with the results of her surgery. She says she is developing new numbness in her right hand. She says this is happening a few times a week. She had questions about remaining out of work. 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 She is unsure if her work has light duty to accomodate her. [facility] Medical History (Updated 06/06/24 @ 13:08 by Dustin Dunn) Varicose vein of leg Hypothyroid Left shoulder pain History of renal stone Thyroid cancer Asthma Iron deficiency anemia Surgical History (Updated 01/03/23 @ 09:02 by Paxton Healy MD, FACS, [facility]) Hx laparoscopic cholecystectomy Hx of shoulder surgery Status post phlebectomy H/O colonoscopy History of lithotripsy Hx of thyroidectomy Social History Household Members: Spouse Housing: House Alcohol intake: current Alcohol intake frequency: holidays/special occasions only Alcohol type: hard liquor Comment: counts correct Patient Tobacco Use Status: Never used Tobacco service: No Current occupational status: employed 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 Sutures removed and Steri-Strips applied She can make a fist and extend all her digits Sensation is normal in the median nerve distribution, and of all digits in the left hand Cap refill is brisk Nerve Conduction study Left-side only IMPRESSION: 1. This is an abnormal study. 2. There is electrodiagnostic evidence for left moderate-severe median neuropathy at the wrist, consistent with Carpal Tunnel Syndrome. 3. There is no electrodiagnostic evidence for ulnar neuropathy, brachial plexopathy, or cervical radiculopathy. Kathy Zapata MD, JACLYN 05/27/23 Psych Appearance: grossly normal Affect: normal affect Attitude: cooperative Assessment & Plan Assessment & Plan (1) Left carpal tunnel syndrome: Code(s): G56.02 - Carpal tunnel syndrome, left upper limb Category: Medical (2) Numbness of right hand: Code(s): R20.0 - Anesthesia of skin Category: Medical Plan Assessment & Plan: 1. Left carpal tunnel syndrome, S/P release DOS: 05/24/24 Pre-operative symptoms intermittent, but daily, worse at night with some persistent decreased sensation to the index and middle fingers Now with normal sensation & good resolution of her nighttime symptoms The patient appears to be doing well post-operatively I educated her about the post-operative course I discussed activity modifications, she is to lift nothing heavier than a cellphone for the next two weeks She will perform gentle ROM exercises at home She should avoid any underwater activities for the next 5 days She should gently massage about the incision site to reduce the risk of hypersensitivity 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 She was given a note to return to work on 06/18/24, at full duty. 2. Right hand numbness Symptoms intermittent & occasional If her symptoms increase in frequency or severity she will follow up and we can order a NCS Scribed for Nicci Chauhan MD by Dustin Dunn, medical biller/coder, on 06/06/24 at 1:05 PM, EST. Scribe Plan - Not visible on output: Scribed for Nicci Chauhan MD by candido Montemayor scribe, on [ ] at [ ], EST. Coding Level of Care Code Global (90742) Diagnoses Left carpal tunnel syndrome G56.02 Numbness of right hand R20.0
== END 2024-06-06 13:15 | disposition home or self-care (01) ==
PROVIDERS: PCP Internal Medicine; Visit Provider Orthopaedic Surgery
DX: G56.02 Carpal tunnel syndrome, left upper limb (principal); R20.0 Anesthesia of skin
CPT/HCPCS: 99024

== ENCOUNTER → 2024-06-06 12:06 | Outpatient (BNVA) | payer BC, SELFPAY | PROVIDERS: PCP Internal Medicine; Visit Provider Orthopaedic Surgery ==

== ENCOUNTER 2024-08-25 07:16 | Outpatient (REF) | payer BC, SELFPAY ==
[2024-08-25 08:23] LABS: Alanine Aminotransferase 17 U/L (0-31); Albumin Level 4.1 g/dL (3.5-5.0); Alkaline Phosphatase 95 U/L (39-117); Anion Gap 12 (12-20); Aspartate Amino Transferase 23 U/L (5-31); Bilirubin Total 0.8 mg/dL (0.0-1.0); Blood Urea Nitrogen 13 mg/dL (9-16); Calcium 9.5 mg/dL (8.4-10.2); Carbon Dioxide 26 mmol/L (22-29); Chloride 105 mmol/L (96-108); Cholesterol 185 mg/dL (<200); Estimated Glomerular Filt Rate > 60; Glucose Random 84 mg/dL (60-115); HDL Cholesterol 50 mg/dL (>40); LDL Cholesterol Calculated 119 mg/dL (<100); Potassium 3.7 mmol/L (3.3-5.1); Sodium 139 mmol/L (135-145); Total Protein 7.3 g/dL (6.5-8.0); Triglycerides 83 mg/dL (<150)
== END 2024-08-25 07:17 | disposition home or self-care (01) ==
LOC: HO.LAB 07:16
PROVIDERS: PCP Internal Medicine; Visit Provider Internal Medicine
DX: Z00.01 Encounter for general adult medical examination with abnormal findings (principal); K59.00 Constipation, unspecified; I10 Essential (primary) hypertension; G47.00 Insomnia, unspecified; E78.00 Pure hypercholesterolemia, unspecified; E03.8 Other specified hypothyroidism
CPT/HCPCS: 36415; 80053; 80061

== ENCOUNTER 2025-02-02 07:23 | Outpatient (REF) | payer BC, SELFPAY | END 2025-02-02 07:24 | disposition home or self-care (01) | LOC: HO.MAMMO 07:23 | PROVIDERS: PCP Internal Medicine; Visit Provider Internal Medicine | DX: Z12.31 Encounter for screening mammogram for malignant neoplasm of breast (principal) | CPT/HCPCS: 77063; 77067 ==

== ENCOUNTER → 2025-02-02 07:45 | Outpatient (BNV) | payer BC, SELFPAY | PROVIDERS: PCP Internal Medicine; Visit Provider Internal Medicine | DX: Z12.31 Encounter for screening mammogram for malignant neoplasm of breast (principal) | CPT/HCPCS: 77063; 77067 ==